=== PATIENT | female | born 1955 | race Caucasian/White ===

== ENCOUNTER → 2021-01-27 09:27 | Outpatient (CLI) | payer MEDICARE, MEDICAID, SELFPAY ==
[2021-01-27 18:29] LABS: SARS-CoV-2 RNA PCR Negative
== END ==
PROVIDERS: PCP Physician Assistant; Visit Provider Physician Assistant
DX: R68.89 Other general symptoms and signs (principal); Z20.822 Contact with and (suspected) exposure to COVID-19
CPT/HCPCS: C9803; U0003; U0005

== ENCOUNTER 2021-07-22 10:32 | Outpatient (CLI) | payer MEDICARE, MEDICAID, SELFPAY ==
[2021-07-22 11:11] LABS: Hematocrit 37.4 % (37.0-47.0); Hemoglobin 12.2 g/dL (12.0-15.0); Mean Corpuscular HGB Conc 32.6 g/dl (32-36); Mean Corpuscular Hemoglobin 27.6 pg (26-34); Mean Corpuscular Volume 84.6 fl (80-100); Mean Platelet Volume 9.6 fl (7.4-10.4); Platelet Count Result 322 k/mm3 (150-375); Red Blood Count 4.42 M/mm3 (4.2-5.4); Red Cell Distribution Width 14.9 % (11.5-14.5); White Blood Count 6.1 K/mm3 (4.5-10.0)
[2021-07-22 11:41] LABS: Alanine Aminotransferase 17 U/L (6-35); Albumin Level 4.5 g/dL (3.5-5.1); Alkaline Phosphatase 80 U/L (38-126); Anion Gap 5 mmol/L (8-16); Aspartate Amino Transferase 25 U/L (14-36); Bilirubin,Total 0.3 mg/dL (0.2-1.3); Blood Urea Nitrogen 13 mg/dL (7-17); Calcium 9.4 mg/dL (8.4-10.2); Carbon Dioxide 29 mmol/L (22-30); Chloride 104 mmol/L (98-107); Cholesterol 169 mg/dL (0-200); Estimated Glomerular Filt Rate 56; Glucose 102 mg/dL (65-110); HDL Direct 68 mg/dL; Potassium 3.9 mmol/L (3.4-5.0); Sodium 138 mmol/L (137-145); Triglycerides 100 mg/dL (<150)
[2021-07-22 11:53] LABS: LDL Cholesterol Direct 72 mg/dL
[2021-07-22 12:08] LABS: Thyroid Stimulating Hormone 0.381 uIU/mL (0.465-4.680)
[2021-07-22 12:44] LABS: Folic Acid 9.2 ng/mL (2.76->20)
[2021-07-22 12:48] LABS: Creatinine Urine 102.6 mg/dL
[2021-07-22 13:32] LABS: MALB Creatinine Ratio < 5.8 mg/g (0-30); Microalbumin Urine Random < 6.0 mg/L (0-16.7)
[2021-07-22 13:39] LABS: Hemoglobin A1C 5.8 % (<5.7)
== END 2021-07-22 10:33 | disposition home or self-care (01) ==
LOC: ANHLAB 10:36
PROVIDERS: PCP Physician Assistant; Visit Provider Physician Assistant
DX: E11.9 Type 2 diabetes mellitus without complications (principal); R53.83 Other fatigue
CPT/HCPCS: 36415; 80053; 80061; 82043; 82607; 82746; 83036; 84443; 85027

== ENCOUNTER 2021-08-24 14:45 | Outpatient (CLI) | payer MEDICARE, MEDICAID, SELFPAY ==
--- NOTE | ~2021-08-24 | MM_ITS ---
EXAMINATION: MM screening marlin BI w anabel HISTORY: Screening mammogram TECHNIQUE: Craniocaudal and mediolateral oblique 3-D tomosynthesis images were obtained and synthetic 2-D images were generated. CAD analysis was submitted and interpreted. COMPARISON: 01/01/2016, 12/29/2014 BREAST PARENCHYMAL COMPOSITION: The breasts are almost entirely fatty. FINDINGS: There is no suspicious mass, calcification, or architectural distortion to suggest malignan cy in either breast. There has been no suspicious interval change. IMPRESSION: 1. No mammographic evidence of malignancy. 2. Recommend routine screening mammography in one year. BI-RADS Category 1: Negative Reviewed, dictated and finalized at location A.
== END 2021-08-24 14:46 | disposition home or self-care (01) ==
PROVIDERS: PCP Physician Assistant; Visit Provider Physician Assistant
DX: Z12.31 Encounter for screening mammogram for malignant neoplasm of breast (principal)
CPT/HCPCS: 77063; 77067

== ENCOUNTER 2021-08-28 21:54 | Emergency (ER) | payer MEDICARE, MEDICAID, SELFPAY ==
--- NOTE | ~2021-08-28 | XR_ITS ---
XR elbow RT min 3V DATE: 08/28/2021 23:14 INDICATION: Pain and tenderness TECHNIQUE: 4 views COMPARISON: None FINDINGS: Mild dorsal olecranon process spur. Minimal spurring of the radial head. Mild spurring of t he coronoid process of the ulna. No fracture or dislocation or joint effusion. No periosteal reaction or bone destruction. IMPRESSION: Degenerative changes Reviewed, dictated and finalized at location A. IMPRESSION: Degenerative changes
[2021-08-28 21:57] VITALS: BP 140/81; PULSE 72; RESP 18; TEMP 36.5; O2SAT 98
[2021-08-28] MEDS: IBUPROFEN 600 MG TABLET PO (23:11)
[2021-08-28] MEDS: ACETAMINOPHEN 325 MG TABLET 650 MG PO (23:12)
[2021-08-28] MEDS: CYCLOBENZAPRINE HCL 5 MG TABLET PO (23:12)
--- NOTE | 2021-08-28 23:18 | ED.UPPEXIN ---
HPI - Extremity Injury (Upper) General Chief Complaint: Extremity Injury, Upper Stated Complaint: RUE pain Time Seen by Provider: 08/28/21 22:53 History of Present Illness HPI narrative: Patient is a 66-year-old female here for evaluation of right arm pain. Patient states that she was picking up her grandchild 2 hours prior to arrival, when she suddenly had some pain in her right bicep muscle. States that the pain is not there all the time, but is most notable with elbow flexion. She has not attempted any medication prior to arrival. Denies any weakness, numbness, tingling. Related Data Home Medications Medication Instructions Recorded Confirmed amlodipine 5 mg tablet 5 mg PO DAILY 08/24/20 07/16/21 aspirin 81 mg tablet,delayed 81 mg PO DAILY 08/24/20 07/16/21 release ceywyumshf-jfionphcjzdaz-evlmbbmt 1 cap PO Q4-6H PRN 08/24/20 07/16/21 50 mg-300 mg-40 mg capsule cholecalciferol (vitamin D3) 125 125 mcg PO DAILY 08/24/20 07/16/21 mcg (5,000 unit) capsule clobetasol 0.05 % topical cream 1 applic topical BID 08/24/20 07/16/21 fluticasone propionate 50 1 spray intranasal DAILY 08/24/20 07/16/21 mcg/actuation nasal spray,suspension loratadine 10 mg tablet 10 mg PO DAILY 08/24/20 07/16/21 mecobalamin (vitamin B12) 1,000 1,000 mcg PO DAILY 08/24/20 07/16/21 mcg chewable tablet melatonin 5 mg capsule mg PO 08/24/20 07/16/21 metformin 1,000 mg tablet 1,000 mg PO BID 08/24/20 07/16/21 sumatriptan succinate 50 mg tablet See Rx Instructions PO .COMPLEX 08/24/20 07/16/21 Allergies Allergy/AdvReac Type Severity Reaction Status Date / Time prednisone Allergy Unknown Swelling Verified 08/28/21 22:07 Review of Systems Review of Systems: Gen.: Denies fevers or chills Eyes: Denies eye pain or visual change ENT: Denies congestion Respiratory: Denies shortness of breath or cough CV: Denies chest pain or palpitations GI: Denies abdominal pain nausea, emesis or diarrhea denies burning, urgency, frequency or hematuria Musculoskeletal: Reports right bicep pain Neuro: Denies numbness, tingling, weakness or focal weakness Skin: Denies rash Except as documented, all other systems reviewed and negative PMFSH Past Medical History Medical History Diabetes GERD (gastroesophageal reflux disease) Heart palpitations Hypertension Sleep apnea Family History Family History Father Family history of obesity Depression Family history of migraine headaches Hypertension Family history of atrial fibrillation Family history of coronary artery disease Family history of heart disease in male family member before age 55 Mother Family history of cataracts Father Family history of atrial fibrillation Family history of congestive heart failure Mother Patient's mother is Other Family history of cardiovascular disease Family history of chronic obstructive pulmonary disease Family history of malignant neoplasm Social History Social History Smoking status: Former smoker Second hand tobacco smoke exposure: Yes Smoking end date: 02/13/11 Alcohol intake: current Substance use: unknown Exam Narrative: APPEARANCE: Well appearing, no pain in distress, well-nourished. Head: Normocephalic and atraumatic. EYES: PERRLA/EOMI, conjunctivae clear NOSE: No nasal drainage EARS: External ear normal in appearance THROAT: Oropharynx is clear. Mucous membranes are moist. NECK: Supple. No adenopathy, no masses. RESPIRATORY: Airway patent, respirations nonlabored. Clear to auscultation bilaterally, no rales, rhonchi, wheezing. CARDIOVASCULAR: Regular rate and rhythm without murmurs, rubs, or gallops. ABDOMINAL: Normoactive bowel sounds. Soft, nontender, nondistended. No rebound tenderness or guarding. MUSCULOSKELETAL: No bony t
[2021-08-29 00:35] VITALS: BP 149/80; PULSE 63; RESP 16; O2SAT 98
== END 2021-08-29 00:35 | disposition home or self-care (01) ==
PROVIDERS: Emergency Provider Emergency Medicine; PCP Physician Assistant
DX: S46.211A Strain of muscle, fascia and tendon of other parts of biceps, right arm, initial encounter (principal); I10 Essential (primary) hypertension; E11.9 Type 2 diabetes mellitus without complications; K21.9 Gastro-esophageal reflux disease without esophagitis; G47.30 Sleep apnea, unspecified; Z79.84 Long term (current) use of oral hypoglycemic drugs; Z79.82 Long term (current) use of aspirin; Z87.891 Personal history of nicotine dependence; X50.0XXA Overexertion from strenuous movement or load, initial encounter
CPT/HCPCS: 73080; 99283; A9270

== ENCOUNTER 2021-09-01 09:59 | Outpatient (CLI) | payer MEDICARE, MEDICAID, SELFPAY ==
--- NOTE | 2021-09-01 11:30 | NEURO_ITS ---
Impression: # Complains of pain in right upper extremity proximally. # No Carpal Tunnel Syndrome or ulnar neuropathy. # Normal needle/EMG exam. # Clinical correlation recommended. Nerve Conduction Studies Anti Sensory Summary Table Stim Site NR Peak (ms) P-T Amp (?V) Site1 Site2 Delta-P (ms) Dist (cm) Thomas (m/s) Right Median Anti Sensory (2-3nd Digit) Wrist 2.7 32.0 Wrist 2-3nd Digit 2.7 14.0 52 Wrist 2.6 44.6 Wrist 2-3nd Digit 2.7 14.0 52 Right Radial Anti Sensory (Base 1st Digit) Wrist 1.8 17.5 Wrist Base 1st Digit 1.8 0.0 Right Ulnar Anti Sensory (5th Digit) Wrist 2.3 43.3 Wrist 5th Digit 2.3 14.0 61 Motor Summary Table Stim Site NR Onset (ms) O-P Amp (mV) Site1 Site2 Delta-0 (ms) Dist (cm) Thomas (m/s) Right Median Motor (Abd Poll Brev) Wrist 3.4 3.4 Elbow Wrist 5.7 28.0 49 Elbow 9.1 0.6 Right Ulnar Motor (Abd Dig Minimi) Wrist 2.4 7.8 A Elbow Wrist 4.6 27.0 59 A Elbow 7.0 6.2 F Wave Studies NR F-Lat (ms) L-R F-Lat (ms) Right Median (Mrkrs) (Abd Poll Brev) 28.30 Right Ulnar (Mrkrs) (Abd Dig Min) 27.73 EMG Side Muscle Nerve Root Ins Act Fibs Amp Dur Recrt Comment Right 1stDorInt Ulnar C8-T1 Nml Nml Nml Nml Nml Right Ext Indicis Radial (Post Int) C7-8 Nml Nml Nml Nml Nml Right Ext Digitorum Radial (Post Int) C7-8 Nml Nml Nml Nml Nml Right BrachioRad Radial C5-6 Nml Nml Nml Nml Nml Right PronatorTeres Median C6-7 Nml Nml Nml Nml Nml Right Abd Poll Brev Median C8-T1 Nml Nml Nml Nml Nml Right Biceps Musculocut C5-6 Nml Nml Nml Nml Nml Right Triceps Radial C6-7-8 Nml Nml Nml Nml Nml Right Deltoid Axillary C5-6 Nml Nml Nml Nml Nml MTDD
== END 2021-09-01 10:00 | disposition home or self-care (01) ==
LOC: ANHNEURO 10:00
PROVIDERS: PCP Physician Assistant; Visit Provider Physician Assistant
DX: M79.601 Pain in right arm (principal)
CPT/HCPCS: 95886; 95909

== ENCOUNTER 2022-03-22 01:37 | Day surgery (SDC) | payer MEDICARE, MEDICAID, SELFPAY ==
[2022-02-18 11:13] VITALS: BMI 35.9
[2022-03-22 09:30] VITALS: BP 130/74; PULSE 66; RESP 18; TEMP 36.1; O2SAT 100
--- NOTE | 2022-03-22 09:48 | PM.HPGS ---
History of Present Illness History of Present Illness Consent: Risks, benefits, and alternatives have been discussed and questions answered. Patient agrees to proceed with procedure. Chief complaint: Dysphagia Narrative: Sarah Fallon is a 66 year old female Presents for EGD. Patient reports when eating meat that it will catch in her throat. She states this been present for many months. Patient has very poor dentition is difficult to chew meat thoroughly. She also has a history of acid reflux is been present for many years. She previously had heartburn. Currently maintained on omeprazole 20mg p.o. b.i.d.. She has not had heartburn while taking this medication. It will recur if she only takes it once a day. Patient states many years ago had an EGD that was unremarkable. Because of difficulty swallowing she is referred today for EGD to assess for esophageal narrowing. Review of Systems Review of Systems: Review of systems noncontributory. [facility] Past Medical History Medical History Diabetes GERD (gastroesophageal reflux disease) Heart palpitations Hypertension Sleep apnea Family History Family History Father Family history of obesity Depression Family history of migraine headaches Hypertension Family history of atrial fibrillation Family history of coronary artery disease Family history of heart disease in male family member before age 55 Mother Family history of cataracts Father Family history of atrial fibrillation Family history of congestive heart failure Mother Patient's mother is Other Family history of cardiovascular disease Family history of chronic obstructive pulmonary disease Family history of malignant neoplasm Social History Social History Smoking status: Former smoker Tobacco type: cigarettes Second hand tobacco smoke exposure: Yes Smoking end date: 02/13/11 Alcohol intake: current Alcohol use details: rarely Substance use: unknown Substance use type: does not use Lack of Transportation: No Lack of Food: Never True Current Housing: I Have Housing Concerned About Future Housing: No Difficulty Paying Gas/Electric Bills: No Difficulty Paying for Meds: No Currently Unemployed: No Education: High School Diploma/GED Difficulty w/ Childcare or Family Care: No Living arrangements: with family Spiritual care concerns: No Meds Home Medications and Allergies Home Medications Medication Instructions Recorded Confirmed Type amlodipine 5 mg tablet 5 mg PO DAILY 08/24/20 03/10/22 History aspirin 81 mg tablet,delayed 81 mg PO DAILY 08/24/20 03/10/22 History release puegytmnux-aykbnnhspmicy-bcqzzxpt 1 cap PO Q4-6H PRN Migraine 08/24/20 03/10/22 History 50 mg-300 mg-40 mg capsule Headache cholecalciferol (vitamin D3) 125 125 mcg PO DAILY 08/24/20 03/10/22 History mcg (5,000 unit) capsule fluticasone propionate 50 1 spray intranasal DAILY PRN 08/24/20 03/10/22 History mcg/actuation nasal Allergy Symptoms spray,suspension loratadine 10 mg tablet 10 mg PO DAILY PRN allergy symptoms 08/24/20 03/10/22 History mecobalamin (vitamin B12) 1,000 1,000 mcg PO EVERY OTHER DAY 08/24/20 03/10/22 History mcg chewable tablet metformin 1,000 mg tablet 1,000 mg PO BID 08/24/20 03/10/22 History sumatriptan succinate 50 mg tablet See Rx Instructions PO .COMPLEX 08/24/20 03/10/22 History lancets (Accu-Chek Fastclix Lancet #100 ea 01/18/21 03/10/22 Rx Drum) omeprazole 20 mg capsule,delayed 20 mg PO BID #180 caps 09/30/21 03/10/22 Rx release topiramate 50 mg tablet 50 mg PO BID #180 tabs 10/24/21 03/10/22 Rx betamethasone valerate 0.1 % 1 applic topical BID PRN rash #45 11/08/21 03/10/22 Rx topical cream grams blood sugar diagnostic (Accu-Chek #100 e
[2022-03-22] MEDS: LACTATED RINGERS 1,000 ML 150 ML IV CONT (09:49)
[2022-03-22 09:50] LABS: Glucose Point of Care 96 mg/dl (65-105)
--- NOTE | 2022-03-22 09:55 | WPDANESEPPF ---
Anes - Initial Pre Proc Eval Procedure: Operation Date: 03/22/22 11:00 Proposed Procedures p Esophagogastroduodenoscopy - Geo Mcdowell MD Date/Time: 03/22/22 09:55 Surgeon: Geo Mcdowell MD Pre Op Diagnosis: Dysphagia Patient Data Age: 66 Gender: F Height: 1.55 m Weight: 85.5 kg Last Vital Signs Temp 97 F L 03/22/22 09:30 Pulse 66 03/22/22 09:30 Resp 18 03/22/22 09:30 BP 130/74 03/22/22 09:30 Pulse Ox 100 03/22/22 09:30 O2 Del Method Room Air 03/22/22 09:30 Allergies Allergy/AdvReac Type Severity Reaction Status Date / Time prednisone Allergy Unknown Swelling Verified 03/22/22 09:28 Home Medications Medication Instructions Recorded Confirmed Type amlodipine 5 mg tablet 5 mg PO DAILY 08/24/20 03/10/22 History aspirin 81 mg tablet,delayed 81 mg PO DAILY 08/24/20 03/10/22 History release awvmjqrnni-svyfigcnqzikl-qrlatccz 1 cap PO Q4-6H PRN Migraine 08/24/20 03/10/22 History 50 mg-300 mg-40 mg capsule Headache cholecalciferol (vitamin D3) 125 125 mcg PO DAILY 08/24/20 03/10/22 History mcg (5,000 unit) capsule fluticasone propionate 50 1 spray intranasal DAILY PRN 08/24/20 03/10/22 History mcg/actuation nasal Allergy Symptoms spray,suspension loratadine 10 mg tablet 10 mg PO DAILY PRN allergy symptoms 08/24/20 03/10/22 History mecobalamin (vitamin B12) 1,000 1,000 mcg PO EVERY OTHER DAY 08/24/20 03/10/22 History mcg chewable tablet metformin 1,000 mg tablet 1,000 mg PO BID 08/24/20 03/10/22 History sumatriptan succinate 50 mg tablet See Rx Instructions PO .COMPLEX 08/24/20 03/10/22 History lancets (Accu-Chek Fastclix Lancet #100 ea 01/18/21 03/10/22 Rx Drum) omeprazole 20 mg capsule,delayed 20 mg PO BID #180 caps 09/30/21 03/10/22 Rx release topiramate 50 mg tablet 50 mg PO BID #180 tabs 10/24/21 03/10/22 Rx betamethasone valerate 0.1 % 1 applic topical BID PRN rash #45 11/08/21 03/10/22 Rx topical cream grams blood sugar diagnostic (Accu-Chek #100 ea 11/22/21 03/10/22 Rx Guide test strips) lisinopril 40 mg tablet 40 mg PO DAILY #90 tabs 11/28/21 03/10/22 Rx meloxicam 7.5 mg tablet 7.5 mg PO BID #60 tabs 12/17/21 03/10/22 Rx simvastatin 20 mg tablet 20 mg PO DAILY #90 tabs 01/03/22 03/10/22 Rx oxybutynin chloride 10 mg 10 mg PO DAILY #90 tabs 01/10/22 03/10/22 Rx tablet,extended release 24 hr fluoxetine 20 mg capsule 20 mg PO DAILY #90 caps 02/09/22 03/10/22 Rx hydrochlorothiazide 12.5 mg tablet 12.5 mg PO DAILY #90 tabs 02/09/22 03/10/22 Rx carboxymethylcellulose 0.5 1 drp EACH EYE DAILY 02/18/22 03/10/22 History %-glycerin 0.9 % eye drops (Refresh Relieva) Laboratory Tests 03/22/22 09:46 POC Capillary Glucose 96 mg/dl mg/dl (65-105) Patient hx anesthesia problems: none Family hx anesthesia problems: none Results Review: All pre-operative results and documents have been reviewed as part of the pre-operative evaluation. [facility] Past Medical History Medical History Diabetes GERD (gastroesophageal reflux disease) Heart palpitations Hypertension Sleep apnea Family History Family History Father Family history of obesity Depression Family history of migraine headaches Hypertension Family history of atrial fibrillation Family history of coronary artery disease Family history of heart disease in male family member before age 55 Mother Family history of cataracts Father Family history of atrial fibrillation Family history of congestive heart failure Mother Patient's mother is Other Family history of cardiovascular disease Family history of chronic obstructive pulmonary disease Family history of malignant neoplasm Social History Social History Smoking status: Former smoker Tobacco type: cigarettes Secon
[2022-03-22 10:24] VITALS: BP 94/62; PULSE 75; RESP 16; O2SAT 100
[2022-03-22 10:34] VITALS: BP 120/70; PULSE 70; RESP 15; O2SAT 98
[2022-03-22 10:44] VITALS: BP 128/81; PULSE 67; RESP 16; O2SAT 99
== END 2022-03-22 10:56 | disposition home or self-care (01) ==
PROVIDERS: PCP Physician Assistant; Visit Provider Internal Medicine Gastroenterology
PROC: 0DJ08ZZ Inspection of Upper Intestinal Tract, Via Natural or Artificial Opening Endoscopic (ICD-10-PCS; CPT 43235; principal; 2022-03-22 11:00)
DX: R13.10 Dysphagia, unspecified (principal); K21.9 Gastro-esophageal reflux disease without esophagitis; E11.9 Type 2 diabetes mellitus without complications; I10 Essential (primary) hypertension; G47.30 Sleep apnea, unspecified; Z79.82 Long term (current) use of aspirin; Z79.84 Long term (current) use of oral hypoglycemic drugs; Z87.891 Personal history of nicotine dependence; E66.9 Obesity, unspecified; Z68.35 Body mass index [BMI] 35.0-35.9, adult
CPT/HCPCS: 43450; 43235; 36415; 80053; 82948; 83036; 84439; 84443; J2704; J7120

== ENCOUNTER 2022-03-22 08:23 | Outpatient (CLI) | payer MEDICARE, MEDICAID, SELFPAY ==
[2022-03-22 09:09] LABS: Alanine Aminotransferase 24 U/L (6-35); Albumin Level 4.4 g/dL (3.5-5.1); Alkaline Phosphatase 72 U/L (38-126); Anion Gap 5 mmol/L (8-16); Aspartate Amino Transferase 24 U/L (14-36); Bilirubin,Total 0.4 mg/dL (0.2-1.3); Blood Urea Nitrogen 14 mg/dL (7-17); Calcium 9.4 mg/dL (8.4-10.2); Carbon Dioxide 29 mmol/L (22-30); Chloride 100 mmol/L (98-107); Estimated Glomerular Filt Rate 56; Glucose 100 mg/dL (65-110); Potassium 4.1 mmol/L (3.4-5.0); Sodium 134 mmol/L (137-145)
[2022-03-22 09:39] LABS: Thyroid Stimulating Hormone 0.974 uIU/mL (0.465-4.680)
[2022-03-22 09:45] LABS: Free T4 Free Thyroxine 0.81 ng/mL (0.78-2.19)
[2022-03-22 10:09] LABS: Hemoglobin A1C 5.6 % (<5.7)
== END 2022-03-22 08:24 | disposition home or self-care (01) ==
PROVIDERS: PCP Physician Assistant; Visit Provider Physician Assistant
DX: E11.9 Type 2 diabetes mellitus without complications (principal); E05.90 Thyrotoxicosis, unspecified without thyrotoxic crisis or storm
CPT/HCPCS: 36415; 80053; 83036; 84439; 84443

== ENCOUNTER 2022-05-16 10:37 | Outpatient (CLI) | payer MEDICARE, MEDICAID, SELFPAY ==
--- NOTE | ~2022-05-16 | XR_ITS ---
EXAMINATION: XR humerus RT DATE: 05/16/2022 10:58 INDICATION: Right humeral pain TECHNIQUE: AP and lateral views of the right humerus were obtained. COMPARISON: Right elbow radiographs dated 08/28/2021 FINDINGS: Alignment is normal. No fracture. Mild osteoarthritis at the right elbow, glenohumeral and acromiocla vicular joints. Small olecranon spur. No cortical erosions, periosteal reaction or suspicious lytic o r blastic bone lesions. Soft tissues are unremarkable. IMPRESSION: 1. 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 No acute osseous abnormality. Reviewed, dictated and finalized at location A. IMPRESSION: 1. 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 No acute osseous abnorm ality.
== END 2022-05-16 10:38 | disposition home or self-care (01) ==
PROVIDERS: PCP Physician Assistant; Visit Provider Physician Assistant
DX: M19.021 Primary osteoarthritis, right elbow (principal); M19.011 Primary osteoarthritis, right shoulder
CPT/HCPCS: 73060

== ENCOUNTER 2022-05-30 13:52 | Outpatient (CLI) | payer MEDICARE, MEDICAID, SELFPAY ==
--- NOTE | ~2022-05-30 | CT_ITS ---
Noncontrast CT scan of the lumbar spine CLINICAL HISTORY: Central canal stenosis. TECHNIQUE: Axial noncontrast imaging of the lumbar spine was performed. Sagittal and coronal reformat jessi images were constructed. Dose reduction technique was used on this scan by utilizing automated ex posure control and iterative reconstruction technique. The dose-length product (DLP) was 667.98 mGy-c m. COMPARISON: 09/19/2016 FINDINGS: No fracture or subluxation of the lumbar spine identified. There is severe degenerative dis c narrowing at L1-L2, progressed since prior exam. Remaining disc spaces are relatively well-preserve d. At L1-L2, there is minimal disc bulge with facet arthropathy. No gagandeep spinal canal stenosis. No defi nite neural foraminal narrowing. At L2-L3, there is diffuse disc bulge and facet arthropathy. There is probable mild central canal gracy nosis. There is probable mild bilateral neural foraminal narrowing, left worse than right. At L3-L4, disc bulge and facet arthropathy are present, resulting in probable moderate to severe cent ral canal stenosis. There is probable moderate bilateral neural foraminal narrowing. At L4-L5, there is disc bulge and facet arthropathy, resulting in probable moderate to severe thecal sac compression/spinal canal stenosis. There is moderate to advanced bilateral neural foraminal narro wing. At L5-S1, there is probable disc bulge and facet arthropathy. No definite canal stenosis. There is se thomas bilateral neural foraminal narrowing. Intrathecal catheters are present, entering the spinal canal at the T12-L1 level. Paravertebral soft tissues are otherwise unremarkable. IMPRESSION: Advanced degenerative spondylosis, as detailed above. There is multifactorial degenerative moderate t o severe thecal sac compression/spinal canal stenosis at L3-L4 and L4-L5. There is probable mild cent ral canal stenosis at L2-L3. There is multilevel neural foraminal narrowing, as detailed above. Severe degenerative disc narrowing at L1-L2. Intrathecal catheters, as above. Reviewed, dictated and finalized at location M. IMPRESSION: Advanced degenerative spondylosis, as detailed above. There is multifactorial d egenerative moderate to severe thecal sac compression/spinal canal stenosis at L3-L4 and L4-L5. There is probable mild central canal stenosis at L2-L3. There is multilevel neural foraminal narrowing, as detailed above. Severe degenerative disc narrowing at L1-L2. Intrathecal catheters, as above.
== END 2022-05-30 13:53 | disposition home or self-care (01) ==
PROVIDERS: PCP Physician Assistant; Visit Provider Physician Assistant
DX: M48.00 Spinal stenosis, site unspecified (principal); M43.06 Spondylolysis, lumbar region
CPT/HCPCS: 72131

== ENCOUNTER 2022-07-22 20:44 | Emergency (ER) | payer MEDICARE, MEDICAID, SELFPAY ==
--- NOTE | ~2022-07-22 | CT_ITS ---
EXAMINATION: CT abdomen pelvis w con DATE: 07/23/2022 00:10 INDICATION: Constipation. Left lower quadrant pain. TECHNIQUE: Computed tomography (CT) of the abdomen and pelvis was performed with 100 cc Omnipaque 350 intravenous contrast. The dose-length product was 857.85 mGy-cm. Automated exposure control and iter ative reconstruction technique were employed. COMPARISON: None. FINDINGS: Lung bases are unremarkable. No significant pleural or pericardial effusion. Heart size nor mal. Moderate diffuse atherosclerosis of the aorta without aneurysm. No lymphadenopathy. The liver, spleen, pancreas, adrenal glands and kidneys are unremarkable. No lymphadenopathy. No free air or free fluid. Nonobstructive bowel pattern. The appendix is not positively visualized. There i s no pericecal inflammatory change to suggest appendicitis. Nonobstructive bowel pattern. No evidence for diverticulitis. Moderate colonic fecal loading. IMPRESSION: 1. No acute abdominal abnormality. Reviewed, dictated and finalized at location A.
[2022-07-22 21:19] VITALS: BP 131/73; PULSE 73; RESP 18; TEMP 36.3; O2SAT 100
[2022-07-22 22:26] LABS: Basophils Percent Auto 0.5 % (0.2-1.2); Eosinophils Absolute Auto 0.4 K/mm3 (0-0.3); Eosinophils Percent Auto 4.9 % (0-4.4); Hematocrit 38.7 % (37.0-47.0); Hemoglobin 12.4 g/dL (12.0-15.0); Immature Granulocyte Absolute 0.05 K/mm3 (0.00-0.031); Immature Granulocyte Percent A 0.6 % (0-0.5); Lymphocytes Absolute Auto 3.06 K/mm3 (0.9-3.2); Lymphocytes Percent Auto 39.6 % (18.3-44.2); Mean Corpuscular Hemoglobin 27.1 pg (26-34); Mean Corpuscular Volume 84.7 fl (80-100); Mean Platelet Volume 9.6 fl (7.4-10.4); Monocytes Percent Auto 12.5 % (2.6-8.5); Neutrophils Absolute Auto 3.2 K/mm3 (1.3-6.7); Neutrophils Percent Auto 41.9 % (45.5-73.1); Platelet Count Result 308 k/mm3 (150-375); Red Blood Count 4.57 M/mm3 (4.2-5.4); Red Cell Distribution Width 14.5 % (11.5-14.5); White Blood Count 7.7 K/mm3 (4.5-10.0)
[2022-07-22 22:36] LABS: Alanine Aminotransferase 26 U/L (6-35); Albumin Level 4.6 g/dL (3.5-5.1); Alkaline Phosphatase 65 U/L (38-126); Anion Gap 4 mmol/L (8-16); Aspartate Amino Transferase 30 U/L (14-36); Bilirubin,Total 0.3 mg/dL (0.2-1.3); Blood Urea Nitrogen 9 mg/dL (7-17); Calcium 9.4 mg/dL (8.4-10.2); Carbon Dioxide 32 mmol/L (22-30); Chloride 96 mmol/L (98-107); Estimated CRCL calculation 48 ml/min; Estimated Glomerular Filt Rate 56; Glucose 101 mg/dL (65-110); Lipase 76 U/L (23-300); Potassium 3.8 mmol/L (3.4-5.0); Sodium 132 mmol/L (137-145)
[2022-07-22 23:18] LABS: Appearance Urine Clear (Clear); Bilirubin Urine Negative (Negative); Blood Urine Negative (Negative); Color Urine Yellow (Yellow); Glucose Urine UA Negative (Negative); Ketones Urine Negative (Negative); Leukocyte Esterase Ur Negative LEU/UL (Negative); Nitrate Urine Negative (Negative); Protein Urine Negative (Negative); Specific Grav Ur 1.003 (1.001-1.035); Urobilinogen Urine 0.2 mg/dL (<2.0); pH Urine 7.5 (5.0-9.0)
[2022-07-22 23:22] VITALS: BP 119/65; PULSE 63; RESP 15; TEMP 36.9; O2SAT 100
[2022-07-22 23:40] LABS: Add Urine Microscopic? NO
--- NOTE | 2022-07-22 23:56 | ED.ABDPAIN ---
HPI - Abdominal Pain General Chief Complaint: Abdominal Pain Stated Complaint: constipation Time Seen by Provider: 07/22/22 22:43 Source: patient Mode of arrival: ambulatory Limitations: no limitations History of Present Illness HPI narrative: Patient is a 66 y/o female who presents to the ED with c/o constipation. Patient reports she was diagnosed with colitis last at [facility], started on Augmentin. She has been taking this as prescribed. She c/o intermittent lower abdominal cramping and persistent constipation since then. She states her last bowel movement was on prior to the colitis diagnosis. She has been taking MiraLAX and Dulcolax without relief. She denies any nausea, vomiting, fevers, urinary symptoms. Related Data Home Medications Medication Instructions Recorded Confirmed amlodipine 5 mg tablet 5 mg PO DAILY 08/24/20 07/21/22 aspirin 81 mg tablet,delayed 81 mg PO DAILY 08/24/20 07/21/22 release ybqhjxorpf-xwxxxasdzdirv-vfwcrrih 1 cap PO Q4-6H PRN Migraine 08/24/20 07/21/22 50 mg-300 mg-40 mg capsule Headache cholecalciferol (vitamin D3) 125 125 mcg PO DAILY 08/24/20 07/21/22 mcg (5,000 unit) capsule fluticasone propionate 50 1 spray intranasal DAILY PRN 08/24/20 07/21/22 mcg/actuation nasal Allergy Symptoms spray,suspension loratadine 10 mg tablet 10 mg PO DAILY PRN allergy symptoms 08/24/20 07/21/22 mecobalamin (vitamin B12) 1,000 1,000 mcg PO EVERY OTHER DAY 08/24/20 07/21/22 mcg chewable tablet sumatriptan succinate 50 mg tablet See Rx Instructions PO .COMPLEX 08/24/20 07/21/22 carboxymethylcellulose 0.5 1 drp EACH EYE DAILY 02/18/22 07/21/22 %-glycerin 0.9 % eye drops (Refresh Relieva) amoxicillin 875 mg-potassium 1 tablet PO BID 07/20/22 07/21/22 clavulanate 125 mg tablet Allergies Allergy/AdvReac Type Severity Reaction Status Date / Time prednisone Allergy Unknown Swelling Verified 07/22/22 21:28 Review of Systems Review of Systems: CONSTITUTIONAL: Denies fever, chills, or sweats. CARDIOVASCULAR: Denies chest pain. RESPIRATORY: Denies dyspnea. GASTROINTESTINAL: See HPI. GENITOURINARY: Denies dysuria or hematuria. SKIN: Denies rash or itching. MUSCULOSKELETAL: Denies back pain, joint pain, or myalgia. All systems reviewed & are unremarkable except as noted in HPI and below PMFSH Past Medical History Medical History Diabetes GERD (gastroesophageal reflux disease) Heart palpitations Hypertension Sleep apnea Family History Family History Father Family history of obesity Depression Family history of migraine headaches Hypertension Family history of atrial fibrillation Family history of coronary artery disease Family history of heart disease in male family member before age 55 Mother Family history of cataracts Father Family history of atrial fibrillation Family history of congestive heart failure Mother Patient's mother is Other Family history of cardiovascular disease Family history of chronic obstructive pulmonary disease Family history of malignant neoplasm Social History Social History Smoking status: Former smoker Tobacco type: cigarettes Second hand tobacco smoke exposure: Yes Smoking end date: 02/13/11 Alcohol intake: current Alcohol use details: rarely Substance use: unknown Substance use type: does not use Lack of Transportation: No Lack of Food: Never True Current Housing: I Have Housing Concerned About Future Housing: No Difficulty Paying Gas/Electric Bills: No Difficulty Paying for Meds: No Currently Unemployed: No Education: High School Diploma/GED Difficulty w/ Childcare or Family Care: No Living arrangements: with family Spiritual care concerns: No Exam Narrative:
[2022-07-23] MEDS: SODIUM CHLORIDE 0.9% IV 1,000 ML 999 ML IV CONT (00:21)
[2022-07-23 01:26] VITALS: BP 112/68; PULSE 78; RESP 15; O2SAT 100
[2022-07-23 02:37] VITALS: BP 105/60; PULSE 64; RESP 16; TEMP 36.9; O2SAT 99
== END 2022-07-23 02:38 | disposition home or self-care (01) ==
PROVIDERS: Emergency Medicine; Emergency Provider Physician Assistant; PCP Physician Assistant
DX: K59.00 Constipation, unspecified (principal); E11.9 Type 2 diabetes mellitus without complications; I10 Essential (primary) hypertension; K21.9 Gastro-esophageal reflux disease without esophagitis; G47.30 Sleep apnea, unspecified; Z87.891 Personal history of nicotine dependence; Z79.82 Long term (current) use of aspirin; Z79.84 Long term (current) use of oral hypoglycemic drugs
CPT/HCPCS: 36415; 74177; 80053; 81003; 83690; 85025; 96360; 99284; J7030; Q9967

== ENCOUNTER 2022-09-29 11:46 | Outpatient (CLI) | payer MEDICARE, MEDICAID, SELFPAY ==
--- NOTE | ~2022-09-29 | XR_ITS ---
EXAMINATION: XR chest 2V DATE: 09/29/2022 13:02 INDICATION: Hypertension. Preop. TECHNIQUE: Frontal and lateral views of the chest were obtained. COMPARISON: CT abdomen and pelvis 07/23/2022 FINDINGS: There is no pneumonia, pleural effusion, or pneumothorax. The heart size is normal. Epidura l electrodes are noted. IMPRESSION: 1. No acute cardiopulmonary disease. Reviewed, dictated and finalized at location A.
--- NOTE | 2022-09-29 12:18 | ECG_ITS ---
Measurements Intervals [place] Rate: 65 P: 75 VA: 165 QRS: 40 QRSD: 93 T: 32 QT: 393 QTc: 411 Interpretive Statements SINUS RHYTHM WITH SINUS ARRHYTHMIA NONSPECIFIC T-WAVE ABNORMALITY BORDERLINE ECG NO PREVIOUS ECG AVAILABLE FOR COMPARISON Electronically Signed On 09-29-2022 13:34:12 CDT by Ankush Gagnon M.D.
[2022-09-29 12:51] LABS: Basophils Percent Auto 0.5 % (0.2-1.2); Eosinophils Absolute Auto 0.3 K/mm3 (0-0.3); Eosinophils Percent Auto 3.5 % (0-4.4); Hemoglobin 12.3 g/dL (12.0-15.0); Immature Granulocyte Absolute 0.03 K/mm3 (0.00-0.031); Immature Granulocyte Percent A 0.4 % (0-0.5); Lymphocytes Absolute Auto 2.02 K/mm3 (0.9-3.2); Lymphocytes Percent Auto 24.7 % (18.3-44.2); Mean Corpuscular HGB Conc 31.5 g/dl (32-36); Mean Corpuscular Volume 85.7 fl (80-100); Mean Platelet Volume 9.5 fl (7.4-10.4); Monocytes Absolute Auto 1.1 K/mm3 (0.1-0.6); Monocytes Percent Auto 13.2 % (2.6-8.5); Neutrophils Absolute Auto 4.7 K/mm3 (1.3-6.7); Neutrophils Percent Auto 57.7 % (45.5-73.1); Platelet Count Result 342 k/mm3 (150-375); Red Blood Count 4.55 M/mm3 (4.2-5.4); Red Cell Distribution Width 14.2 % (11.5-14.5); White Blood Count 8.2 K/mm3 (4.5-10.0)
[2022-09-29 12:53] LABS: Appearance Urine Clear (Clear); Bilirubin Urine Negative (Negative); Blood Urine Negative (Negative); Color Urine Yellow (Yellow); Glucose Urine UA Negative (Negative); Ketones Urine Negative (Negative); Leukocyte Esterase Ur Negative LEU/UL (Negative); Nitrate Urine Negative (Negative); Protein Urine Negative (Negative); Specific Grav Ur 1.017 (1.001-1.035); pH Urine 5.5 (5.0-9.0)
[2022-09-29 12:58] LABS: Add Urine Microscopic? NO
[2022-09-29 13:01] LABS: Anion Gap 10 mmol/L (8-16); Blood Urea Nitrogen 12 mg/dL (7-17); Calcium 9.5 mg/dL (8.4-10.2); Carbon Dioxide 25 mmol/L (22-30); Chloride 99 mmol/L (98-107); Estimated Glomerular Filt Rate > 60; Glucose 89 mg/dL (65-110); Potassium 3.9 mmol/L (3.4-5.0); Sodium 134 mmol/L (137-145)
[2022-09-29 13:19] LABS: Prothrombin Time 13.9 Seconds (11.1-14.7)
[2022-09-29 13:20] LABS: Partial Thromboplastin Time 26.8 SECONDS (22.3-36.8)
[2022-09-29 20:06] LABS: Hemoglobin A1C 5.6 % (<5.7)
== END 2022-09-29 11:47 | disposition home or self-care (01) ==
LOC: ANHSURGERY 12:14
PROVIDERS: PCP Physician Assistant; Visit Provider Neurological Surgery
DX: E11.9 Type 2 diabetes mellitus without complications (principal); I10 Essential (primary) hypertension; T85.192A Other mechanical complication of implanted electronic neurostimulator of spinal cord electrode (lead), initial encounter; Z01.818 Encounter for other preprocedural examination
CPT/HCPCS: 36415; 71046; 80048; 81003; 83036; 85025; 85610; 85730; 93005

== ENCOUNTER 2022-10-05 01:30 | Day surgery (SDC) | payer MEDICARE, MEDICAID, SELFPAY ==
--- NOTE | 2022-09-26 12:30 | PC.NURSE ---
Report to the Outpatient Waiting Room, entrance under the green pavilion located off [facility], at time _0600 on date _09/15/22/ . Planned Procedure Time: __0730 . Time changes happen often and if your time is changed the preop area will call you the afternoon before. - You and your visitor will be asked to self-screen and do not enter if you have any COVID symptoms. - A mask is optional within the hospital at this time. Patients may have clear liquids (water, carbonated beverages, clear teas, apple juice) until 3 hours prior to surgery with a maximum of 20 ounces. - No food from midnight until time of surgery - Infants may have breast milk until 4 hours before surgery, infant formula 6 hours prior to surgery. - Children will be allowed to drink immediately following surgery. If applicable, please bring a bottle or sippy cup to assist with drinking. Juice, water, soda, and popsicles are readily available. For infants on formula, please bring formula the day of surgery. Pacifiers are allowed. Take the following medications with a SIP of water the morning of surgery: ___AMLODIPINE,FLUOXETINE, DO NOT STOP ANY OF YOUR OTHER PRESCRIPTION MEDICATIONS PRIOR TO SURGERY ?EXCEPT THE FOLLOWING Medications to discontinue per physician ___ALL VITAMINS AND SUPPLEMENTS 3 DAYS PRE OP.LAST DOSE 10/02/22. ASPIRIN PER DR MANTILLA Please no make-up, nail french, hairspray, perfume, deodorant, or body powder the day of surgery. No jewelry (including any body piercings) or valuables the day of surgery, leave them at home. Please take a shower or bath the night before, or the morning of, surgery with an antibacterial soap. Wear comfortable, loose fitting clothing. Children are encouraged to wear pajamas. - Jewelry must be removed prior to entering the operating room. Rings and piercings that are not removed may be cut off. - The hospital will not accept responsibility for valuables. - Please leave all valuables, including medications, at home the day of surgery. If you are going home after surgery, a licensed fast food delivery driver must drive you home. - NO public transportation without another adult if you receive anesthesia. - We recommend that an adult stay with you for 24 hours following discharge. - We also recommend that you do not drive, make important decision, drink alcoholic beverages, or take any drugs that were not prescribed by your health care provider for at least 24 hours after your discharge time. Follow any additional instructions given to you from your surgeon. If you or anyone in your household have experienced Covid symptoms in the past week, please notify your surgeon or the nurse liaison at the phone number below for possible testing. Telephone instructions given to ___PATIENT and asked if any additional questions and then verbalized understanding. Patient advised to call surgeon office or pre surgery nurse liaison [phone] if any additional questions.
[2022-09-26 12:42] VITALS: BMI 34.4
[2022-10-05] VITALS (8 sets, daily range): BP systolic 85–125; BP diastolic 52–70; PULSE 59–76; RESP 12–18; TEMP 36.1–36.7; O2SAT 97–100
[2022-10-05] MEDS: LACTATED RINGERS 1,000 ML 30 ML IV CONT ×2 (06:30→08:30)
[2022-10-05 07:03] LABS: Glucose Point of Care 98 mg/dl (65-105)
--- NOTE | 2022-10-05 07:15 | WPDHPUPDATE1 ---
History and Physical Update Update Date/Time: 10/05/22 07:15 History and Physical has been reviewed, including an updated exam of the patient. There are NO changes in the patient's condition. Risks, benefits, and alternatives have been discussed and questions answered. Patient agrees to proceed with procedure.
--- NOTE | 2022-10-05 07:24 | WPDANESEPPF ---
Anes - Initial Pre Proc Eval Procedure: Operation Date: 10/05/22 07:30 Proposed Procedures p Removal Spinal Cord Stimulator and Generator - Jalyn Bauer MD Date/Time: 10/05/22 07:24 Surgeon: Jalyn Bauer MD Pre Op Diagnosis: spinalcord stimulator dysfunction Patient Data Age: 67 Gender: F Height: 1.56 m Weight: 83.95 kg Allergies Allergy/AdvReac Type Severity Reaction Status Date / Time prednisone Allergy Unknown Swelling Verified 09/26/22 12:10 Home Medications Medication Instructions Recorded Confirmed Type amlodipine 5 mg tablet 5 mg PO DAILY 08/24/20 09/26/22 History aspirin 81 mg tablet,delayed 81 mg PO DAILY 08/24/20 09/26/22 History release ahjykynzpo-jshohzudncicp-erlcrnje 1 cap PO Q4-6H PRN Migraine 08/24/20 09/26/22 History 50 mg-300 mg-40 mg capsule Headache cholecalciferol (vitamin D3) 125 125 mcg PO DAILY 08/24/20 09/26/22 History mcg (5,000 unit) capsule fluticasone propionate 50 1 spray intranasal DAILY PRN 08/24/20 09/26/22 History mcg/actuation nasal Allergy Symptoms spray,suspension loratadine 10 mg tablet 10 mg PO DAILY PRN allergy symptoms 08/24/20 09/26/22 History mecobalamin (vitamin B12) 1,000 1,000 mcg PO EVERY OTHER DAY 08/24/20 09/26/22 History mcg chewable tablet sumatriptan succinate 50 mg tablet See Rx Instructions PO .COMPLEX 08/24/20 09/26/22 History lancets (Accu-Chek Fastclix Lancet #100 ea 01/18/21 07/21/22 Rx Drum) betamethasone valerate 0.1 % 1 applic topical BID PRN rash #45 11/08/21 09/26/22 Rx topical cream grams blood sugar diagnostic (Accu-Chek #100 ea 11/22/21 07/21/22 Rx Guide test strips) carboxymethylcellulose 0.5 1 drp EACH EYE DAILY 02/18/22 09/26/22 History %-glycerin 0.9 % eye drops (Refresh Relieva) topiramate 50 mg tablet 50 mg PO BID #180 tabs 05/02/22 09/26/22 Rx celecoxib 200 mg capsule 200 mg PO DAILY #90 caps 05/16/22 09/26/22 Rx lisinopril 40 mg tablet 40 mg PO DAILY #90 tabs 05/31/22 09/26/22 Rx omeprazole 20 mg capsule,delayed 20 mg PO BID #180 caps 06/24/22 09/26/22 Rx release oxybutynin chloride 10 mg 10 mg PO DAILY #90 tabs 06/24/22 09/26/22 Rx tablet,extended release 24 hr metformin 1,000 mg tablet 1,000 mg PO BID #180 tabs 06/27/22 09/26/22 Rx simvastatin 20 mg tablet 20 mg PO DAILY #90 tabs 07/01/22 09/26/22 Rx cyclobenzaprine 10 mg tablet 10 mg PO QHS PRN muscle spasm #20 07/20/22 09/26/22 Rx tabs docusate sodium 100 mg tablet 200 mg PO QHS #60 tabs 07/20/22 09/26/22 Rx fluoxetine 20 mg capsule 20 mg PO DAILY #90 caps 08/15/22 09/26/22 Rx hydrochlorothiazide 12.5 mg tablet 12.5 mg PO DAILY #90 tabs 08/27/22 09/26/22 Rx acetaminophen 500 mg capsule 500 mg PO Q6H PRN Pain 09/26/22 09/26/22 History Laboratory Tests 10/05/22 07:00 POC Capillary Glucose 98 mg/dl (65-105) Patient hx anesthesia problems: none Family hx anesthesia problems: none Results Review: All pre-operative results and documents have been reviewed as part of the pre-operative evaluation. [facility] Past Medical History Medical History Diabetes GERD (gastroesophageal reflux disease) Heart palpitations Hypertension Migraines Mild acid reflux Sleep apnea Family History Family History Father Family history of obesity Depression Family history of migraine headaches Hypertension Family history of atrial fibrillation Family history of coronary artery disease Family history of heart disease in male family member before age 55 Mother Family history of cataracts Father Family history of atrial fibrillation Family history of congestive heart failure Mother Patient's mother is Other Family history of cardiovascular disease Family history of chronic obstructive pulmonary disease Family history of malignant neoplasm Social History Social History (Rev
[2022-10-05] MEDS: ceFAZolin 2 GM/D5W 50 ML 2 GM/50 ML BAG IVPB (07:26)
[2022-10-05] MEDS: BUPIVACAINE/EPINEPHRINE 0.5% 30 ML VIAL 20 ML INFILTRATE (07:51)
--- NOTE | 2022-10-05 08:28 | P.OPB_ITS ---
Procedure Note - Brief Procedure Note - Brief Date of procedure: 10/05/22 spinalcord stimulator dysfunction Post-op diagnosis: Same Procedure performed: Removal of spinal cord stimulator leads and generator Surgeon: Jalyn Bauer MD Associate Professor Of Economics: Levi Anesthesia: GETA and local Description of procedure: Removal of right gluteal generator. Reopened both lumbar incisions to remove leads. All material sent for gross specimen Implants: None Estimated blood loss (mL): 5 Drains: No Packing: No Pathology: Yes Complications: None Condition: Stable Disposition: PACU
[2022-10-05 08:47] LABS: Glucose Point of Care 117 mg/dl (65-105)
--- NOTE | 2022-10-05 15:06 | W.PM.PROC2 ---
Procedure Note - Detailed Date of Procedure 10/05/22 Pre-op Diagnosis spinal cord stimulator dysfunction Post-op Diagnosis Same Procedure Performed Removal of spinal cord stimulator leads and generator Surgeon Jalyn Bauer MD Filling Machine Set Up Mechanic Levi Anesthesia General and Local Indications Ms. Fallon is a 67-year-old female who had a spinal cord stimulator placed in 2006 which was unfortunately never helpful for her back pain. She has not used it in many years. She recently presented to clinic to discuss her back and leg pain. In order to obtain imaging in the form of an MRI, her spinal cord stimulator would need to be removed. Therefore, she presented for surgery today to have it removed. Risks of surgery were discussed including pain, infection, bleeding, need for more extensive exposure like a laminectomy to remove the leads, epidural hematoma, and anesthetic risks were discussed. The patient provided written informed consent to proceed. Description of Procedure The patient arrived in the operating room where general anesthesia was induced. The patient was turned prone onto the operating table. All pressure points were padded. The previous incisions were marked. The surgical field was prepped and draped in usual sterile fashion. Time out was conducted, and local anesthetic was injected into all planned incisions. The right gluteal incision was opened with a 10-blade scalpel. The soft tissue was dissected to the generator which was exposed with the bovie. A belinda was used to remove the generator from the pocket. The leads were cut, and the generator was passed off. The bovie was used to score the interior surfaces of the generator pocket to promote adhesion of the tissue. Next, both lumbar incisions were re-opened with the scalpel. The bovie was used to expose the leads and anchors. The entire lead was then able to be removed from the spine with the tips intact. All material was removed from the wounds and was sent for gross pathology. Hemostasis was ensured with the bovie. All incisions were copiously irrigated. The dermis was closed with interrupted 2-0 and 3-0 vicryl. The skin was closed in a subcuticular fashion with 4-0 monocryl. The incisions were covered with skin glue. The patient was returned to the supine position, extubated, and transferred to PACU without incident. Billing codes: 44003, 14680 Estimated Blood Loss 5 Drains No Packing No Pathology Yes Complications None Condition Stable Disposition PACU [facility] Billing Surgery - Charge Forward: Surgery Billing
== END 2022-10-05 10:17 | disposition home or self-care (01) ==
PROVIDERS: PCP Physician Assistant; Visit Provider Neurological Surgery
PROC: (CPT 63661; principal; 2022-10-05 07:30)
DX: T85.192A Other mechanical complication of implanted electronic neurostimulator of spinal cord electrode (lead), initial encounter (principal); M47.816 Spondylosis without myelopathy or radiculopathy, lumbar region; M79.652 Pain in left thigh; M79.651 Pain in right thigh; G89.29 Other chronic pain; Y83.8 Other surgical procedures as the cause of abnormal reaction of the patient, or of later complication, without mention of misadventure at the time of the procedure; E11.9 Type 2 diabetes mellitus without complications; I10 Essential (primary) hypertension; K21.9 Gastro-esophageal reflux disease without esophagitis; G47.30 Sleep apnea, unspecified; Z87.891 Personal history of nicotine dependence; E66.9 Obesity, unspecified; Z68.32 Body mass index [BMI] 32.0-32.9, adult; Z79.82 Long term (current) use of aspirin; Z79.84 Long term (current) use of oral hypoglycemic drugs
CPT/HCPCS: 63661; 63688; 82948; 88300; J0330; J0690; J1100; J2405; J2704; J3010; J7120

== ENCOUNTER 2022-11-02 14:35 | Outpatient (CLI) | payer MEDICARE, MEDICAID, SELFPAY ==
--- NOTE | ~2022-11-02 | MR_ITS ---
MRI of the lumbar spine Clinical History: Spondylosis Technique: Axial T2-weighted images, and sagittal T1-weighted, T2-weighted, and T2 fat-sat images wer e acquired. Findings: There is no fracture of the lumbar spine. There is minimal grade 1 retrolisthesis of L2 ove r L3. No suspicious bone marrow signal abnormality seen. At L1-L2, there is advanced degenerative disc narrowing. There is minimal disc bulge and moderate to advanced facet arthropathy. No central canal stenosis or neural foraminal narrowing. At L2-L3, there is mild disc bulge with advanced facet arthropathy. There is mild central canal steno sis. There is mild left neural foraminal narrowing. At L3-L4, there is disc bulge and severe facet arthropathy, resulting in moderate central canal steno sis/thecal sac compression. There is mild to moderate bilateral neural foraminal narrowing. At L4-L5, there is disc bulge and moderate facet arthropathy. No gagandeep central canal stenosis. There is moderate to severe right neural foraminal narrowing, and mild left neural foraminal narrowing. At L5-S1, there is central disc bulge with advanced facet arthropathy. No central canal stenosis. The re is severe right neural foraminal narrowing, and moderate to advanced left neural foraminal narrowi ng. Paravertebral soft tissues are unremarkable. Impression: Moderate to advanced degenerative spondylosis, as detailed above, probably worst at L3-L4. Minimal grade 1 retrolisthesis of L2 over L3. Reviewed, dictated and finalized at [facility]. Impression: Moderate to advanced degenerative spondylosis, as detailed above, probably wors t at L3-L4. Minimal grade 1 retrolisthesis of L2 over L3.
--- NOTE | ~2022-11-02 | XR_ITS ---
EXAMINATION: XR lumbar spine min 4V DATE: 11/02/2022 15:38 INDICATION: Spondylosis without myelopathy or radiculopathy TECHNIQUE: Anteroposterior and lateral in neutral, flexion and extension views of the lumbar spine, a nd cone-down lateral view of the lumbosacral junction were obtained. COMPARISON: 11/29/2015 and MRI from today FINDINGS: Bone alignment is normal. There is no fracture. No hypermobility is identified with flexion or extension. The vertebral body heights are maintained. There is severe loss of intervertebral disc space height at L1-2. There is severe facet joint osteoarthritis of the lower lumbar spine. IMPRESSION: 1. Moderate lumbar spondylosis without acute findings. Reviewed, dictated and finalized at location L.
--- NOTE | ~2022-11-02 | XR_ITS ---
AP view of the pelvis and AP and lateral views of the bilateral hips Clinical history: Pain Findings: No acute fracture or dislocation is seen. Osseous alignment is anatomic. Bilateral hip and SI joint spaces are preserved. Soft tissues are unremarkable. Impression: No significant abnormality is seen. Reviewed, dictated and finalized at location . Impression: No significant abnormality is seen.
== END 2022-11-02 14:36 | disposition home or self-care (01) ==
PROVIDERS: PCP Physician Assistant; Visit Provider Neurological Surgery
DX: M47.816 Spondylosis without myelopathy or radiculopathy, lumbar region (principal)
CPT/HCPCS: 72110; 72148; 73521

== ENCOUNTER 2023-03-15 08:30 | Outpatient (CLI) | payer MEDICARE, MEDICAID, SELFPAY ==
--- NOTE | ~2023-03-15 | XR_ITS ---
Right Shoulder Technique: AP and scapular Y views were obtained. Clinical History: Pain Findings: No fracture or dislocation is seen. Osseous alignment is anatomic. The glenohumeral and acr omioclavicular joint spaces are preserved. Soft tissues are unremarkable. Impression: Unremarkable right shoulder radiographs. Reviewed, dictated and finalized at [facility]. RINTENDENT PIER Impression: Unremarkable right shoulder radiographs.
--- NOTE | ~2023-03-15 | XR_ITS ---
XR cervical spine 4-5V DATE: 03/15/2023 09:18 INDICATION: Right arm pain TECHNIQUE: AP, open-mouth, lateral, swimmer views COMPARISON: None FINDINGS: C1 and C2 are normally aligned and the odontoid process is intact. No fracture or dislocation or locked facet. No prevertebral soft tissue swelling. There is minimal anterolisthesis at C4-5. Cervical interspaces are well preserved. Left dual-lead pacemaker device. IMPRESSION: Minimal anterolisthesis at C4-5 Reviewed, dictated and finalized at location B. [employer]
[2023-03-15 09:42] LABS: Creatinine Urine 99.7 mg/dL
[2023-03-15 09:43] LABS: Basophils Percent Auto 0.6 % (0.2-1.2); Eosinophils Absolute Auto 0.3 K/mm3 (0-0.3); Eosinophils Percent Auto 3.9 % (0-4.4); Hematocrit 40.8 % (37.0-47.0); Hemoglobin 12.3 g/dL (12.0-15.0); Immature Granulocyte Absolute 0.01 K/mm3 (0.00-0.031); Immature Granulocyte Percent A 0.2 % (0-0.5); Lymphocytes Absolute Auto 2.13 K/mm3 (0.9-3.2); Lymphocytes Percent Auto 33.1 % (18.3-44.2); Mean Corpuscular HGB Conc 30.1 g/dl (32-36); Mean Corpuscular Hemoglobin 24.9 pg (26-34); Mean Corpuscular Volume 82.6 fl (80-100); Mean Platelet Volume 10.1 fl (7.4-10.4); Monocytes Absolute Auto 0.7 K/mm3 (0.1-0.6); Monocytes Percent Auto 10.1 % (2.6-8.5); Neutrophils Absolute Auto 3.4 K/mm3 (1.3-6.7); Neutrophils Percent Auto 52.1 % (45.5-73.1); Platelet Count Result 302 k/mm3 (150-375); Red Blood Count 4.94 M/mm3 (4.2-5.4); Red Cell Distribution Width 16.7 % (11.5-14.5); White Blood Count 6.4 K/mm3 (4.5-10.0)
[2023-03-15 10:01] LABS: Alanine Aminotransferase 19 U/L (6-35); Albumin Level 4.2 g/dL (3.5-5.1); Alkaline Phosphatase 81 U/L (38-126); Anion Gap 9 mmol/L (8-16); Aspartate Amino Transferase 22 U/L (14-36); Bilirubin,Total 0.4 mg/dL (0.2-1.3); Blood Urea Nitrogen 14 mg/dL (7-17); Calcium 9.6 mg/dL (8.4-10.2); Carbon Dioxide 29 mmol/L (22-30); Chloride 102 mmol/L (98-107); Cholesterol 181 mg/dL (0-200); Estimated Glomerular Filt Rate > 60; Glucose 89 mg/dL (65-110); HDL Direct 57 mg/dL; Potassium 3.7 mmol/L (3.4-5.0); Sodium 140 mmol/L (137-145); Triglycerides 137 mg/dL (<150)
[2023-03-15 10:11] LABS: MALB Creatinine Ratio < 6.0 mg/g (0-30); Microalbumin Urine Random < 6.0 mg/L (0-16.7)
[2023-03-15 10:14] LABS: LDL Cholesterol Direct 93 mg/dL
[2023-03-15 10:32] LABS: Thyroid Stimulating Hormone 0.742 uIU/mL (0.465-4.680)
[2023-03-15 11:00] LABS: Hemoglobin A1C 5.9 % (<5.7)
[2023-03-15 11:07] LABS: Folic Acid 6.2 ng/mL (2.76->20)
== END 2023-03-15 08:31 | disposition home or self-care (01) ==
PROVIDERS: PCP Physician Assistant; Visit Provider Physician Assistant
DX: E11.9 Type 2 diabetes mellitus without complications (principal); R53.83 Other fatigue; M79.601 Pain in right arm
CPT/HCPCS: 36415; 72050; 73030; 80053; 80061; 82043; 82607; 82746; 83036; 84443; 85025

== ENCOUNTER 2023-05-24 02:06 | Day surgery (SDC) | payer MEDICARE, MEDICAID, SELFPAY ==
[2023-05-17 13:43] VITALS: BMI 34.0
--- NOTE | 2023-05-17 13:54 | PC.NURSE ---
Pt stated understanding of when to stop Eliquis, last dose being 05/21/23
[2023-05-24 08:33] VITALS: BP 179/81; PULSE 65; RESP 20; TEMP 35.7; O2SAT 100; BMI 32.7
[2023-05-24 08:44] LABS: Glucose Point of Care 96 mg/dl (65-105)
[2023-05-24] MEDS: LACTATED RINGERS 1,000 ML 150 ML IV CONT (08:45)
[2023-05-24 08:47] VITALS: BP 143/79
--- NOTE | 2023-05-24 08:48 | WPDANESEPPF ---
Anes - Initial Pre Proc Eval Procedure: Operation Date: 05/24/23 10:00 Proposed Procedures p Screening Colonoscopy - Juan Mendoza MD Date/Time: 05/24/23 08:48 Surgeon: Juan Mendoza MD Pre Op Diagnosis: hx of colon polyps Patient Data Age: 67 Gender: F Height: 1.57 m Weight: 81.1 kg Last Vital Signs Temp 96.3 F L 05/24/23 08:33 Pulse 65 05/24/23 08:33 Resp 20 05/24/23 08:33 BP 143/79 H 05/24/23 08:47 Pulse Ox 100 05/24/23 08:33 O2 Del Method Room Air 05/24/23 08:33 Allergies Allergy/AdvReac Type Severity Reaction Status Date / Time prednisone Allergy Unknown Swelling Verified 05/24/23 08:29 Home Medications Medication Instructions Recorded Confirmed Type cholecalciferol (vitamin D3) 125 125 mcg PO DAILY 08/24/20 05/17/23 History mcg (5,000 unit) capsule fluticasone propionate 50 1 spray intranasal DAILY PRN 08/24/20 05/17/23 History mcg/actuation nasal Allergy Symptoms spray,suspension loratadine 10 mg tablet 10 mg PO DAILY PRN allergy symptoms 08/24/20 05/17/23 History mecobalamin (vitamin B12) 1,000 1,000 mcg PO EVERY OTHER DAY 08/24/20 05/17/23 History mcg chewable tablet lancets (Accu-Chek Fastclix Lancet #100 ea 01/18/21 03/29/23 Rx Drum) blood sugar diagnostic (Accu-Chek #100 ea 11/22/21 03/29/23 Rx Guide test strips) metformin 1,000 mg tablet 1,000 mg PO BID #180 tabs 06/27/22 05/17/23 Rx oxybutynin chloride 10 mg 10 mg PO DAILY #90 tabs 12/11/22 05/17/23 Rx tablet,extended release 24 hr simvastatin 20 mg tablet 20 mg PO DAILY #90 tabs 01/10/23 05/17/23 Rx fluoxetine 20 mg capsule 20 mg PO DAILY #90 caps 02/03/23 05/17/23 Rx apixaban 5 mg tablet (Eliquis) 5 mg PO BID 03/13/23 05/17/23 History cyclobenzaprine 10 mg tablet 10 mg PO QHS PRN muscle spasm #30 03/13/23 05/17/23 Rx tabs metoprolol tartrate 50 mg tablet 50 mg PO BID 03/13/23 05/17/23 History omeprazole 20 mg capsule,delayed See Rx Instructions .Route 03/25/23 05/17/23 Rx release .COMPLEX #180 caps clobetasol 0.05 % topical cream 1 applic topical BID PRN Itching 03/29/23 05/17/23 History hydrochlorothiazide 12.5 mg tablet 12.5 mg PO DAILY 03/29/23 05/17/23 History topiramate 50 mg tablet 50 mg PO BID #180 tabs 04/20/23 05/17/23 Rx sumatriptan succinate 50 mg tablet See Rx Instructions PO .COMPLEX #9 05/09/23 05/17/23 Rx tabs docusate sodium 50 mg capsule 50 mg PO DAILY PRN Constipation 05/17/23 05/17/23 History Laboratory Tests 05/24/23 08:41 POC Capillary Glucose 96 mg/dl (65-105) Patient hx anesthesia problems: none and post op nausea/vomiting Family hx anesthesia problems: none Results Review: All pre-operative results and documents have been reviewed as part of the pre-operative evaluation. [facility] Past Medical History Medical History (Updated 03/29/23 @ 10:29 by Heber Zurita MD) Diabetes GERD (gastroesophageal reflux disease) Heart palpitations History of pacemaker Hypertension Migraines Mild acid reflux Sleep apnea Surgical History Surgical History (Updated 03/29/23 @ 10:21 by Alannah Macedo CMA) History of ankle surgery History of back surgery History of bilateral breast reduction surgery History of carpal tunnel release of both wrists History of tubal ligation Family History Family History Father Family history of obesity Depression Family history of migraine headaches Hypertension Family history of atrial fibrillation Family history of coronary artery disease Family history of heart disease in male family member before age 55 Mother Family history of cataracts Father Family history of atrial fibrillation Family history of congestive heart failure Mother Patient's mother is Other Family history of cardiovascular disease Family history of chronic obstructive pulmonary disease Family history of malign
--- NOTE | 2023-05-24 09:48 | PM.HPGS ---
History of Present Illness History of Present Illness Consent: Risks, benefits, and alternatives have been discussed and questions answered. Patient agrees to proceed with procedure. Chief complaint: hx of colon polyps Narrative: Sarah Fallon is a 67 year old female here for screening colonoscopy, last one 2012 Review of Systems Review of Systems: All systems reviewed & are unremarkable except as noted in HPI and below PMFSH Past Medical History Medical History (Updated 05/24/23 @ 09:49 by Juan Mendoza MD) Colon cancer screening Diabetes GERD (gastroesophageal reflux disease) Heart palpitations History of pacemaker Hypertension Migraines Mild acid reflux Sleep apnea Surgical History Surgical History (Updated 03/29/23 @ 10:21 by Alannah Macedo CMA) History of ankle surgery History of back surgery History of bilateral breast reduction surgery History of carpal tunnel release of both wrists History of tubal ligation Family History Family History Father Family history of obesity Depression Family history of migraine headaches Hypertension Family history of atrial fibrillation Family history of coronary artery disease Family history of heart disease in male family member before age 55 Mother Family history of cataracts Father Family history of atrial fibrillation Family history of congestive heart failure Mother Patient's mother is Other Family history of cardiovascular disease Family history of chronic obstructive pulmonary disease Family history of malignant neoplasm Social History Social History (Updated 03/29/23 @ 10:22 by Alannah Macedo CMA) Social History: Within the last 12 months, Sarah has received assistance in getting her medications and food. She feels very confident in filling out medical forms. Smoking packs per day: 3 Smoking cigarettes per day: 60.0 Years smoked: 24 Smoking pack-years: 72.00 Smoking status: Former smoker Tobacco type: cigarettes Second hand tobacco smoke exposure: Yes Smoking end date: 02/13/11 Alcohol intake: current Alcohol use details: rarely Substance use type: does not use Do You Feel Safe in your Home?: Yes Lack of Transportation: YES Lack of Food: Never True Current Housing: I Have Housing Concerned About Future Housing: No Difficulty Paying Gas/Electric Bills: No Difficulty Paying for Meds: No Currently Unemployed: No Education: High School Diploma/GED Difficulty w/ Childcare or Family Care: No Living arrangements: with family Occupation/Education: retired Spiritual care concerns: No Meds Home Medications and Allergies Home Medications Medication Instructions Recorded Confirmed Type cholecalciferol (vitamin D3) 125 125 mcg PO DAILY 08/24/20 05/17/23 History mcg (5,000 unit) capsule fluticasone propionate 50 1 spray intranasal DAILY PRN 08/24/20 05/17/23 History mcg/actuation nasal Allergy Symptoms spray,suspension loratadine 10 mg tablet 10 mg PO DAILY PRN allergy symptoms 08/24/20 05/17/23 History mecobalamin (vitamin B12) 1,000 1,000 mcg PO EVERY OTHER DAY 08/24/20 05/17/23 History mcg chewable tablet lancets (Accu-Chek Fastclix Lancet #100 ea 01/18/21 03/29/23 Rx Drum) blood sugar diagnostic (Accu-Chek #100 ea 11/22/21 03/29/23 Rx Guide test strips) metformin 1,000 mg tablet 1,000 mg PO BID #180 tabs 06/27/22 05/17/23 Rx oxybutynin chloride 10 mg 10 mg PO DAILY #90 tabs 12/11/22 05/17/23 Rx tablet,extended release 24 hr simvastatin 20 mg tablet 20 mg PO DAILY #90 tabs 01/10/23 05/17/23 Rx fluoxetine 20 mg capsule 20 mg PO DAILY #90 caps 02/03/23 05/17/23 Rx apixaban 5 mg tablet (Eliquis) 5 mg PO BID 03/13/23 05/17/23 History cyclobenzaprine 10 mg tablet 10 mg PO QHS PRN muscle spasm #30 03/13/23 05/17/23 Rx tabs metoprolol tartrate 50 mg tablet
[2023-05-24 10:13] VITALS: BP 122/89; PULSE 64; RESP 18; O2SAT 100
[2023-05-24 10:23] VITALS: BP 151/69; PULSE 60; RESP 18; O2SAT 99
[2023-05-24 10:33] VITALS: BP 159/71; PULSE 60; RESP 20; O2SAT 98
--- NOTE | 2023-05-24 10:42 | SUR.PHASEII ---
PT NOTIFIED TO RESUME ELIQUIS TOMORROW 05/25/[address] LEI ORDERS. STATES UNDERSTANDING
== END 2023-05-24 10:44 | disposition home or self-care (01) ==
PROVIDERS: PCP Physician Assistant; Visit Provider Internal Medicine Gastroenterology
PROC: 0DJD8ZZ Inspection of Lower Intestinal Tract, Via Natural or Artificial Opening Endoscopic (ICD-10-PCS; CPT 45378; principal; 2023-05-24 10:00)
DX: Z12.11 Encounter for screening for malignant neoplasm of colon (principal); K63.5 Polyp of colon; E11.9 Type 2 diabetes mellitus without complications; I10 Essential (primary) hypertension; G47.30 Sleep apnea, unspecified; K21.9 Gastro-esophageal reflux disease without esophagitis; Z95.0 Presence of cardiac pacemaker; Z79.84 Long term (current) use of oral hypoglycemic drugs; Z79.01 Long term (current) use of anticoagulants; Z87.891 Personal history of nicotine dependence; E66.9 Obesity, unspecified; Z68.32 Body mass index [BMI] 32.0-32.9, adult
CPT/HCPCS: 45385; 82948; 88305; J2704; J7120

== ENCOUNTER 2023-11-01 09:37 | Outpatient (CLI) | payer MEDICARE, MEDICAID, SELFPAY ==
[2023-11-01 10:22] LABS: Alanine Aminotransferase 19 U/L (6-35); Albumin Level 4.5 g/dL (3.5-5.1); Alkaline Phosphatase 69 U/L (38-126); Anion Gap 12 mmol/L (4-12); Aspartate Amino Transferase 25 U/L (14-36); Bilirubin,Total 0.4 mg/dL (0.2-1.3); Blood Urea Nitrogen 12 mg/dL (7-17); Calcium 9.6 mg/dL (8.4-10.2); Carbon Dioxide 28 mmol/L (22-30); Chloride 97 mmol/L (98-107); Estimated Glomerular Filt Rate > 60; Glucose 92 mg/dL (65-110); Potassium 4.3 mmol/L (3.4-5.0); Sodium 137 mmol/L (137-145)
[2023-11-01 10:24] LABS: Hemoglobin A1C 5.8 % (<5.7)
[2023-11-01 10:48] LABS: Free T4 Free Thyroxine 0.87 ng/mL (0.78-2.19)
[2023-11-01 10:55] LABS: Thyroid Stimulating Hormone 0.437 uIU/mL (0.465-4.680)
== END 2023-11-01 09:38 | disposition home or self-care (01) ==
LOC: ANHLAB 09:41
PROVIDERS: PCP Internal Medicine; Visit Provider Internal Medicine
DX: E11.9 Type 2 diabetes mellitus without complications (principal); E05.90 Thyrotoxicosis, unspecified without thyrotoxic crisis or storm; I10 Essential (primary) hypertension
CPT/HCPCS: 36415; 80053; 83036; 84439; 84443

== ENCOUNTER 2024-02-02 10:11 | Outpatient (CLI) | payer MEDICARE, MEDICAID, SELFPAY ==
[2024-02-02 11:17] LABS: Thyroid Stimulating Hormone 0.848 uIU/mL (0.465-4.680)
[2024-02-02 12:07] LABS: Free T4 Free Thyroxine 0.71 ng/dL (0.78-2.19)
== END 2024-02-02 10:12 | disposition home or self-care (01) ==
LOC: ANHLAB 10:15
PROVIDERS: PCP Internal Medicine; Visit Provider Internal Medicine
DX: E05.90 Thyrotoxicosis, unspecified without thyrotoxic crisis or storm (principal)
CPT/HCPCS: 36415; 84439; 84443

== ENCOUNTER 2024-05-28 10:10 | Outpatient (CLI) | payer MEDICARE, MEDICAID, SELFPAY ==
[2024-05-28 10:53] LABS: Basophils Percent Auto 0.4 % (0.2-1.2); Eosinophils Absolute Auto 0.2 K/mm3 (0-0.3); Hematocrit 40.2 % (37.0-47.0); Hemoglobin 12.2 g/dL (12.0-15.0); Immature Granulocyte Absolute 0.01 K/mm3 (0.00-0.031); Immature Granulocyte Percent A 0.2 % (0-0.5); Lymphocytes Absolute Auto 1.49 K/mm3 (0.9-3.2); Lymphocytes Percent Auto 28.7 % (18.3-44.2); Mean Corpuscular HGB Conc 30.3 g/dl (32-36); Mean Corpuscular Hemoglobin 26.5 pg (26-34); Mean Corpuscular Volume 87.4 fl (80-100); Mean Platelet Volume 10.2 fl (7.4-10.4); Monocytes Absolute Auto 0.5 K/mm3 (0.1-0.6); Monocytes Percent Auto 10.2 % (2.6-8.5); Neutrophils Absolute Auto 2.9 K/mm3 (1.3-6.7); Neutrophils Percent Auto 56.5 % (45.5-73.1); Platelet Count Result 241 k/mm3 (150-375); Red Cell Distribution Width 15.4 % (11.5-14.5); White Blood Count 5.2 K/mm3 (4.5-10.0)
--- OUTSIDE RECORDS SUMMARY | 2024-05-28 11:06 | XMS_ITS | CONTINUITY OF CARE DOCUMENT ---
Author Name jaycee champion Address Unknown Organization [facility] Address [address] [place] [address] Phone [phone] Care Team Providers Care Family Consumer Scientist Name Role Phone jaycee champion Unavailable Unavailable
--- OUTSIDE RECORDS SUMMARY | 2024-05-28 11:06 | XMS_ITS | Encounter Summary ---
Author Organization [facility] Address [address] [place] [address] Care Team Providers Care Continuous Mining Machine Operator Name Role Phone GrantKathy khan Mayra RENDERER Primary Care Provider Pradeep Winn MD Unavailable [phone] Che CoreasP Primary Care Provider [phone] Stephen Conti PA-C Primary Care Provider [phone] Tanner Aparicio DO Primary Care Provider Encounter Details Date Type Department Care Team (Late st Contact Info) Description 05/31/2017 Hospital Orders Only [facility] at [address] [address] Pradeep Basurto MD [address] [id number] Social History Tobacco Use Types Packs/Day Years Used Date Smoking Tobacco: Former Cigarettes Q uit: 2016 Smokeless Tobacco: Never Alcohol Use Standard Drinks/Week Comments No 0 (1 standard drink = 0.6 oz pur e alcohol) Comments Unknown Sex and Gender Information Value Date Recorded Sex Assigned at Female 12/19/2017 1:40 PM BAG MACHINE SET UP OPERATOR Legal Sex Female 7:58 PM CDT Gender Identity Female 12/19/2017 1:40 PM BAG MACHINE SET UP OPERATOR Sexual Orientation Straight 12/19/2017 1: 40 PM BAG MACHINE SET UP OPERATOR Occupation Industry Job Start Date Job End Date Not on file Not on file Not on file Not on file documented as of this encounter Plan of Treatment Upcoming Encounters Date Type Department Care Team (Late st Contact Info) Description 05/31/2024 1:00 PM CDT [facility], [facility] [address] [place] [address] Vernon Torres MD [facility]. [facility] [address] [place] [address] 06/19/2024 9:30 AM CDT Office Visit [facility] [address] [place] [phone] Shena Spaulding, RENDERER-C [facility]. [facility] [address] [place], [place] [address] 07/01/2024 2:20 PM CDT [facility] [address] [place], [place] [address] Vernon Torres MD [facility]. [facility] [address] [place], [place] [address] Pradeep Basurto MD [facility]. [facility] [address] [place] [address] documented as of this encounter Visit Diagnoses Not on filedocumented in this encounter Care Teams Continuous Mining Machine Operator Relationship Specialty Start Date End Date Kathy Cramer NP PCP - General NURSE PRACTITIONER 03/16/17 01/07/20 Che Coreas FNP [facility]. [facility] [address] [place] [address] PCP - General Nurse Practitioner Family 01/08/20 08/24/20 Stephen Conti PA-C [address] [facility] [address] [place] [address] PCP - General PHYSICIAN REGIONAL PROPERTY MANAGER 08/25/20 02/24/24 Tanner Aparicio DO [address] [address] PCP - General 02/25/24 Pradeep Basurto MD [facility]. [facility] [address] [place] [address] [facility] CARDIOVASCULAR DISEASE 03/23/17 documented as of this encounter
[2024-05-28 11:07] LABS: Hemoglobin A1C 6.1 % (<5.7)
--- OUTSIDE RECORDS SUMMARY | 2024-05-28 11:07 | XMS_ITS | Clinical Summary ---
Author Organization [facility] Address [facility] [place] [address] Care Team Providers Care Solar Pool Heating Installer Name Role Phone Pradeep Basurto MD Unavailable [phone] Tanner Aparicio DO Primary Care Provider [phone] Allergies Active Allergy Reactions Criticality Noted Date Comments Prednisone Other (see comment) 05/17/2017 flushing Medications cholecalciferol (VITAMIN D3) 5000 UNITS Tab Take 1 tablet (5,000 Units total) by mouth daily. 018 Active Additional Information Patient taking differently:5,000 Units Oral Daily,SKIP SUNDAYS, Reported on 11/30/2022 clobetasol 0.05 % cream Apply 0.05 % topically 2 (two) times daily. 018 Active SUMAtriptan 50 MG tabletIndications :Intractable chronic migraine without aura and with status migrainosus TAKE ONE TABLET BY MOUTH AT ONSET OF MIGRAINE. IF SYMPTOMS PERSIST, A SECOND DOSE MAY BE TAKEN IN 1 HOUR. 9 tablet 4 019 Active Accu-Chek FastClix Lancets MiscIndications:U ncontrolled type 2 diabetes mellitus with hyperglycemia ([facility]/HCC HHS/HCC) 1 Device by Does not apply route daily. 102 each 1 020 Active Glucose Blood (BLOOD GLUCOSE TEST STRIPS) StripIndications: Uncontrolled type 2 diabetes mellitus with hyperglycemia (CMS/HCC HHS/HCC) 1 strip by Other route daily. Strips to go with Accu-check Guide me meter 100 strip 1 Active vitamin B-12 500 MCG tablet Take 2 tablets (1,000 mcg total) by mouth daily. Active simvastatin 20 MG tabletIndications :Hyperlipidemia, unspecified hyperlipidemia type Take 1 tablet (20 mg total) by mouth nightly at bedtime. 90 tablet 3 Active metFORMIN 1000 MG tabletIndications :Uncontrolled type 2 diabetes mellitus with hyperglycemia (CMS/HCC HHS/HCC) Take 1 tablet (1,000 mg total) by mouth 2 (two) times daily. 180 tablet 3 Active loratadine 10 MG tablet Take 1 tablet (10 mg total) by mouth daily as needed for Allergies. Active fluticasone propionate (FLONASE) 50 MCG/ACT nasal sprayIndications: Acute non-recurrent sinusitis, unspecified location 1 spray by Each Nostril route daily. 16 g Active Additional Information Patient taking differently:1 spray Each NostrilPRN, Reported on 09/15/2021 CPAP MASKIndications:O bstructive sleep apnea of adult Use nightly with CPAP machine 1 Device Active CPAP SUPPLIESIndicatio ns:Obstructive sleep apnea of adult 1 Device by Apply to Face route nightly at bedtime. 1 Device Active OXYBUTYNIN XL 10 MG 24 hr tabletIndications :Urinary incontinence, unspecified type Take 1 tablet by mouth once daily 90 tablet Active FLUoxetine 20 MG capsuleIndication s:Current mild episode of major depressive disorder, unspecified whether recurrent Take 1 capsule (20 mg total) by mouth daily. 90 capsule 1 Active omeprazole 20 MG capsuleIndication s:Gastroesophagea l reflux disease without esophagitis Take 1 capsule (20 mg total) by mouth 2 (two) times daily. 180 capsule 1 Active TOPIRAMATE 50 MG TabIndications:Ot her migraine with status migrainosus, not intractable Take 1 tablet by mouth twice daily 180 tablet Active Docusate Sodium (STOOL SOFTENER OR) Take 3 tablets by mouth daily as needed. Active cyclobenzaprine (FLEXERIL) 10 MG tablet TAKE 1 TABLET BY MOUTH EVERY DAY AT BEDTIME NEEDED FOR MUSCLE SPASM Active hydroCHLOROthiazi de (MICROZIDE) 12.5 MG tablet TAKE 1 TABLET BY MOUTH IN THE MORNING 90 tablet 1 024 Active apixaban (ELIQUIS) 5 MG tablet Take 1 tablet by mouth twice daily 60 tablet 1 025 Active metoprolol tartrate (LOPRESSOR) 50 MG tablet Take 1 tablet by mouth twice daily 180 tablet 025 Active metoprolol tartrate (LOPRESSOR) 50 MG tablet Take 1 tablet by mouth twice daily 180 tablet 1 024 2024 Discontinued Active Problems Problem Noted Date Diagnosed Date Sinoatrial node dysfunction ([facility]) Overview (01/26/2023): MIRTA CLAROS implanted 01/26/24 for SSS. Status cardiac pacemaker 01/26/2023 Overview (01/26/2023): MIRTA CLAROS implanted 01/26/24 for SSS. Achilles tendinosis of right lower extremity BMI 38.0-38.9,adult 06/19/2019 Vitamin D deficiency 04/30/2019 Seasonal allergies 04/30/2019 Skin ulcer of left foot, cervantes ited to breakdown of skin ([facility]) 12/11/2018 Assessment & Plan (12/11/2018 10:50 AM CDT): Minimal erythema. Will try mucpirocin as do not think warrant oral abx at this time. However did tell her to keep close eye on if any worsening call right away and if no improvement in 1 week may need oral abx and screen for PAD Pain in both feet 10/09/2018 Localized edema 10/09/2018 Dry nares 12/05/2017 Sciatica 09/06/2016 Nerve pain 07/22/2016 Obstructive sleep apnea of adult 07/07/2016 Overview (12/22/2017): Transitioned From: Snoring Urinary incontinence 07/07/2016 Depression 07/01/2016 Diabetes mellitus type 2, uncontrolled 7 GERD (gastroesophageal reflux disease) 7 Insomnia 07/01/2016 Lumbar pain 07/01/2016 Migraine headache 07/01/2016 Osteopenia 07/01/2016 Atypical chest pain Bradycardia Palpitations Essential hypertension Hyperlipidemia Resolved Problems Problem Noted Date Diagnosed Date Resolved Date Papular rash 04/30/2019 01/10/2020 Strain of lumbar region, initial encounter 11/07/2018 01/10/2020 Assessment & Plan (11/07/2018 10:03 AM CDT): Low back strain. Advised her to only take meloxicma and no other NSAID as can damage kidneys to take too much. Can do tylenol OTC, heating bad. Will try muscle relaxant and advised may cause drowsiness so to not drive when taking. Also given some stretching exercises as well Cellulitis 12/05/2017 01/10/2020 Impetigo 03/20/2017 01/10/2020 Wears glasses 01/13/2017 10/25/2019 Encounters Date Type Department Care Team Description 04/03/2024 Travel 03/31/2024 2:00 PM FINANCIAL ACCOUNTING MANAGER Allied Health/Nurse Visit [facility] [address] Vernon Torres MD Scally, John P, MD Remote Device Check from Last 3 Months Immunizations Immunization Administration Dates Next Due Influenza Adult (Generic) 04/23/2019(Deferred: P atient Refused) Family History Medical History Relation Comments Aneurysm Father Depression Father Heart Attack Father Heart Disease Father Hear Valve repla cement Hypertension Father Open Heart Father Stent Cardiac Father Valve Disease Father CHF Other Coronary artery disease Other Diabetes Other Heart Disease Other Leukemia Other Pancreatic Cancer Other Peripheral Neuropathy Other Relation Status Comments Father Mother passed in MVA Other Social History Tobacco Use Types Packs/Day Years Used Date Smoking Tobacco: Former Cigarettes Q uit: 1990 Smokeless Tobacco: Never Tobacco Cessation:Counseling Given: Not Answered Alcohol Use Standard Drinks/Week Comments Yes 0 (1 standard drink = 0.6 oz pur e alcohol) occassionally PHQ-2 Answer Date Recorded PHQ-2 Score - If the patient scores above 3, please move on to questions 3-9 1 07/10/2020 Education Answer Date Recorded What is the highest level of school you have completed or the highest degree you have received? GED or equivalent Comments No Sex and Gender Information Value Date Recorded Sex Assigned at Female 12/19/2017 1:40 PM FINANCIAL ACCOUNTING MANAGER Legal Sex Female 7:58 PM CDT Gender Identity Female 12/19/2017 1:40 PM FINANCIAL ACCOUNTING MANAGER Sexual Orientation Straight 12/19/2017 1: 40 PM FINANCIAL ACCOUNTING MANAGER Occupation Industry Job Start Date Job End Date Not on file Not on file Not on file Not on file Last Filed Vital Signs Vital Sign Reading Time Taken Comments Blood Pressure 120/70 09/20/2023 10:06 AM CDT Pulse 62 09/20/2023 10:06 AM CDT Temperature 36.3 C (97.4 F) 01/25/2023 9:27 AM FINANCIAL ACCOUNTING MANAGER Respiratory Rate 15 01/25/2023 3:30 PM FINANCIAL ACCOUNTING MANAGER Oxygen Saturation 100% 01/25/2023 3:30 PM FINANCIAL ACCOUNTING MANAGER Inhaled Oxygen Concentration - - Weight 81.6 kg (180 lb) 09/20/2023 10:06 AM CDT Height 154.9 cm (5' 1 ) 09/20/2023 10:06 AM CDT Body Mass Index 34.01 09/20/2023 10:06 AM CDT Plan of Treatment Upcoming Encounters Date Type Department Care Team (Late st Contact Info) Description 05/31/2024 1:00 PM CDT Office Visit [address] [address] Vernon Torres MD [address] [address] 06/19/2024 9:30 AM CDT [facility] [address] [place] [address] Shena Spaulding NP-C [facility]. [address] [address] 07/01/2024 2:20 PM CDT Allied Health/Nurse Visit [facility], [address] [address] Vernon Torres MD [facility]. [facility] [address] [place], [place] [id number] Pradeep Basurto MD [facility]. [facility] [address] [place], [place] [address] Health Maintenance Due Date Last Done Comments Colorectal Cancer Screening Colonoscopy (10 Years) 1955 Kidney Health Evaluation 1955 Hepatitis C 1974 DTaP, Tdap and Td Vaccines (1 - Tdap) 09/19/1975 Pneumococcal Vaccine: 50+ Years (1 of 2 - PCV) 09/19/1975 Zoster Vaccines (1 of 2) 2006 Mammogram Screening 05/03/2020 05/03/2018, 2 Hemoglobin A1C 01/10/2021 07/10/2020, 10/15, 04/30/2019, Additional history exists Lipid Panel 07/10/2021 07/10/2020, 2 02/2019, 04/23/2019, Additional history exists Annual Medicare Wellness Visit 2021 Diabetes: Retinopathy Eye Exam 02/26/2022 02/27/2020, 01/15/2019 COVID-19 Vaccine ( season) 2023 PHQ-2 (Physician [place]) 02/14/2024 RSV Immunization or 60+ Years (1 - 1-dose 75+ series) 09/19/2031 Dexa Scan (General) Completed 05/03/2018 Meningococcal B Vaccine Aged Out No l onger eligible based on patient's age to complete this topic Meningococcal Vaccine Aged Out No mary sarah eligible based on patient's age to complete this topic RSV Immunizations Under 20 Months Aged Out No longer eligible based on patient's age to complete this topic Medical Devices Implanted Type Area Drum Dyeing Machine Operator Device Identifier Shelf Expiration Date Model / Serial / Lot Rv Lead Implant-01/25 Implanted:Qty : 1 on 01/25/2023 by Vernon Torres MD Lead Implant [employer] CARDIAC RHYTHM AND HEART FAILURE - DIV M 12/23/2024 [id number] / [id number] / Description:LBB Ra Lead Implant-01/25 Implanted:Qty : 1 on 01/25/2023 by Vernon Torres MD Lead Implant [employer] CARDIAC RHYTHM AND HEART FAILURE - DIV M 09/01/2024 [id number] / [id number] V / Description:Appendage Mdt Pacemaker- Implanted:Qty : 1 on 01/25/2023 by Vernon Torres MD Pacemaker Left: Chest Wall [employer] CARDIAC RHYTHM AND HEART FAILURE - DIV M 05/27/2024 [id number] / [id number] / Procedures Procedure Name Priority Date/Time Associated Diagnosis Comments LIPID PANEL Routine 07/10/2020 7:32 AM CDT Mixed hyperlipidemia HEMOGLOBIN, GLYCOSYLATED Routine 07/10/2020 Uncontrolled type 2 diabetes mellitus with hyperglycemia DIABETIC RETINOPATHY EXAM (NEGATIVE)(SCAN ORDER) Routine 02/27/2020 MG SCREENING ZULY DIGI 05/03/2018 8:55 AM CDT BONE DENSITY/DEXA 05/03/2018 8:4 9 AM CDT from Last 3 Months or Most Recently Relevant to Health Maintenance Results * LIPID PANEL (07/10/2020 7:32 AM CDT) CHOLESTEROL 163 <200.0 MG/DL 07/10/2020 2:33 PM CDT [facility] TRIGLYCERIDES 103 <150 MG/DL 07/10/2020 2:33 PM CDT [facility] HDL 58 >40.0 MG/DL 07/10/2020 2:33 PM CDT [facility] LDL (CALCULATED) 84 <100 MG/DL 07/11/19 2:33 PM CDT [facility] NON HDL CHOLESTEROL 105 <130 MG/DL 07/10 2:33 PM CDT [facility] CHOL/HDL RATIO 2.8 0.0 - 4.5 07/10/2020 2:33 PM CDT [facility] VLDL CALCULATION 21 5 - 55 MG/DL 07/10/2020 2:33 PM CDT [facility] LIPID INTERPRETATION 07/10/2020 2:33 PM CDT [facility] Comment: [facility] REPORT RECOMMENDATIONS: ADULT CHILD LOW RISK: CHOLESTEROL <200 <170 TRIGLYCERIDE <150 --- HDL >=60 --- LDL <100 <110 BORDERLINE: CHOLESTEROL 200-239 170-199 TRIGLYCERIDE 150-199 --- HDL 40-59 --- LDL 100-159 110-129 HIGH RISK: CHOLESTEROL >=240 >=200 TRIGLYCERIDE >=200 --- HDL <40 --- LDL >=160 >=130 07/10/2020 7:32 AM CDT Che Coreas [facility] Final Resu lt Performing Organization Address [facility] de Phone Number [facility] [address] [place] [address], [place] [phone] * HEMOGLOBIN, GLYCOSYLATED (07/10/2020) HGB A1C 5.7 % [id number] [facility] 07/10/2020 Che Coreas [facility] Final Resu lt Performing Organization Address [facility] de Phone Number [id number] [facility] [address] [place] [address], [place] [phone] * DIABETIC RETINOPATHY EXAM (NEGATIVE)(SCAN) (02/27/2020) us Documents Scanned SCANNING Final Result Performing Organization Address [facility] de Phone Number [facility] ONBASE * MG SCREENING ZULY DIGI (05/03/2018 8:55 AM CDT) Anatomical Region Laterality Modality Breast Bilateral Mammography 05/03/2018 8:55 AM CDT Narrative 05/03/2018 12:00 AM CDT [facility] ADMIT/SERVICE DATE: 05/03/18 ACCT: [id number] DISCHARGE DATE: : 1955 SEX: F ORD SITE: [facility] PT TYPE: REG CLI ORDERING MD: KATHY VIVEROS NP STUDY DATE REPORT # ORDER # EXT ORDER ID 05/03/18 [id number] PROC CODE: DSMTWB PROCEDURE DESCRIPTION: MG SCREEN DIG MALI W LATRICE BI EXAMINATION: MG SCREEN DIG MALI W LATRICE BI WITH TOMOSYNTHESIS AND COMPUTER-AIDED DETECTION (CAD) DATE: 05/03/2018 8:24 AM COMPARISON STUDIES: 07/25/2011, 09/22/2010, 11/19/2008. CLINICAL HISTORY: OTHER - MAMM AND BONE DENSITY . SCREENING, NO COMPLAINTS. HISTORY OF BILATERAL BREAST REDUCTION SURGERY 1999. FINDINGS: BILATERAL CC, MLO, 2-D AND 3-D ACQUISITIONS. FATTY REPLACED RESIDUAL BREAST PARENCHYMA. SIMILAR IN APPEARANCE AND DISTRIBUTION TO THE PREVIOUS EXAMS. NO EVIDENCE OF DOMINANT MASS, ARCHITECTURAL DISTORTION, SKIN THICKENING, NIPPLE RETRACTION OR SUSPICIOUS CLUSTERS OF MICROCALCIFICATIONS. BENIGN CALCIFICATIONS REDEMONSTRATED. . CONCLUSION: 1. BI-RADS CATEGORY 2 - BENIGN FINDINGS. ANNUAL SCREENING MAMMOGRAPHY RECOMMENDED 2. TISSUE TYPE: CATEGORY A - THE BREASTS ARE ALMOST ENTIRELY FATTY. MQSA BI-RADS CATEGORIES: CATEGORY 0 - NEEDS ADDITIONAL IMAGING EVALUATION. CATEGORY 1 - NEGATIVE. CATEGORY 2 - BENIGN FINDINGS. CATEGORY 3 - PROBABLY BENIGN FINDINGS, BUT SHORT INTERVAL FOLLOW-UP IS RECOMMENDED. CATEGORY 4 - SUSPICIOUS ABNORMALITY AND BIOPSY SHOULD BE CONSIDERED THOUGH THE LESION MAY WELL BE BENIGN. CATEGORY 5 - HIGHLY SUGGESTIVE OF MALIGNANCY AND APPROPRIATE ACTION SHOULD BE TAKEN. A) A NEGATIVE REPORT SHOULD NOT DELAY A BIOPSY IF A DOMINANT OR CLINICALLY SUSPICIOUS MASS IS PRESENT. B) ADENOSIS AND DENSE BREASTS MAY OBSCURE AN UNDERLYING NEOPLASM. C) STUDY INTERPRETED WITH COMPUTER AIDED DETECTION. VOICE RECOGNITION SOFTWARE UTILIZED. ELECTRONICALLY SIGNED BY SHARATH KIMBROUGH MD ON 05/03/2018 8:56 AM Procedure Note Ren Correa, - 05/03/2018 [facility] ADMIT/SERVICE DATE:05/03/18 ACCT: [id number] DISCHARGE DATE: : 1955 SEX: F ORD SITE: [facility] PT TYPE: REG CLI ORDERING MD:KATHY VIVEROS NP STUDY DATE REPORT # ORDER # EXT ORDER ID 05/03/18 [id number] PROC CODE: DSMTWB PROCEDURE DESCRIPTION: MG SCREEN DIG MALI W LATRICE BI EXAMINATION: MG SCREEN DIG MALI W LATRICE BI WITH TOMOSYNTHESIS ANDCOMPUTER-AIDED DETECTION (CAD) DATE: 05/03/2018 8:24 AM COMPARISON STUDIES: 07/25/2011, 09/22/2010, 11/19/2008. CLINICAL HISTORY: OTHER - MAMM AND BONE DENSITY . SCREENING, NOCOMPLAINTS. HISTORY OF BILATERAL BREAST REDUCTION SURGERY 1999. FINDINGS: BILATERAL CC, MLO, 2-D AND 3-D ACQUISITIONS. FATTY REPLACED RESIDUALBREAST PARENCHYMA. SIMILAR IN APPEARANCE AND DISTRIBUTION TO THE PREVIOUS EXAMS. NO EVIDENCE OF DOMINANTMASS, ARCHITECTURAL DISTORTION, SKIN THICKENING, NIPPLE RETRACTION OR SUSPICIOUS CLUSTERS OFMICROCALCIFICATIONS. BENIGN CALCIFICATIONS REDEMONSTRATED. . CONCLUSION: 1. BI-RADS CATEGORY 2 - BENIGN FINDINGS. ANNUAL SCREENING MAMMOGRAPHYRECOMMENDED 2. TISSUE TYPE: CATEGORY A - THE BREASTS ARE ALMOST ENTIRELY FATTY. MQSA BI-RADS CATEGORIES: CATEGORY 0 - NEEDS ADDITIONAL IMAGING EVALUATION. CATEGORY 1 - NEGATIVE. CATEGORY 2 - BENIGN FINDINGS. CATEGORY 3 - PROBABLY BENIGN FINDINGS, BUT SHORT INTERVAL FOLLOW-UP IS RECOMMENDED. CATEGORY 4 - SUSPICIOUS ABNORMALITY AND BIOPSY SHOULD BE CONSIDERED THOUGH THE LESION MAY WELL BE BENIGN. CATEGORY 5 - HIGHLY SUGGESTIVE OF MALIGNANCY AND APPROPRIATE ACTION SHOULD BE TAKEN. A) A NEGATIVE REPORT SHOULD NOT DELAY A BIOPSY IF A DOMINANT OR CLINICALLY SUSPICIOUS MASS IS PRESENT. B) ADENOSIS AND DENSE BREASTS MAY OBSCURE AN UNDERLYING NEOPLASM. C) STUDY INTERPRETED WITH COMPUTER AIDED DETECTION. VOICE RECOGNITION SOFTWARE UTILIZED. ELECTRONICALLY SIGNED BY SHARATH KIMBROUGH MD ON 05/03/2018 8:56 AM Kathy Viveros NP MAMMO Final Result * BONE DENSITY/DEXA (05/03/2018 8:49 AM CDT) Anatomical Region Laterality Modality Bone Bone Density 05/03/2018 8:49 AM CDT Narrative 05/03/2018 12:00 AM CDT [facility] ADMIT/SERVICE DATE: 05/03/18 ACCT: [id number] DISCHARGE DATE: : 1955 SEX: F ORD SITE: [facility] PT TYPE: REG CLI ORDERING MD: KATHY VIVEROS NP STUDY DATE REPORT # ORDER # EXT ORDER ID 05/03/18 [id number] PROC CODE: DEXASCAN PROCEDURE DESCRIPTION: XR DEXA SCAN EXAMINATION: XR DEXA SCAN EXAM DATE/TIME: 05/03/2018 8:36 AM COMPARISON STUDIES:NO PREVIOUS AVAILABLE. CLINICAL HISTORY: OTHER - MAMM AND BONE DENSITY . POSTMENOPAUSAL STATUS FINDINGS AND IMPRESSION: EXAMINATION PERFORMED ON A [employer] DISCOVERY SL .: LUMBAR SPINE L2-L4: 1. BMD: 1.210. 2. T SCORE: 1.2. 3. WHO CLASSIFICATION: ABOVE NORMAL YOUNG ADULT RANGE. 4. FRACTURE RISK: NEGLIGIBLE. LEFT FEMORAL NECK: 1. BMD: 0.810. 2. T SCORE: -0.3. 3. WHO CLASSIFICATION: NORMAL YOUNG ADULT RANGE. 4. FRACTURE RISK: VERY LOW. VOICE RECOGNITION SOFTWARE UTILIZED. ELECTRONICALLY SIGNED BY SHARATH KIMBROUGH MD ON 05/03/2018 8:50 AM Procedure Note Ren Correa MD - 05/03/2018 [facility] ADMIT/SERVICE DATE:05/03/18 ACCT: [id number] DISCHARGE DATE: : 1955 SEX: F ORD SITE: [facility] PT TYPE: REG CLI ORDERING MD:KATHY VIVEROS NP STUDY DATE REPORT # ORDER # EXT ORDER ID 05/03/18 [id number] PROC CODE: DEXASCAN PROCEDURE DESCRIPTION: XR DEXA SCAN EXAMINATION: XR DEXA SCAN EXAM DATE/TIME: 05/03/2018 8:36 AM COMPARISON STUDIES:NO PREVIOUS AVAILABLE. CLINICAL HISTORY: OTHER - MAMM AND BONE DENSITY . POSTMENOPAUSAL STATUS FINDINGS AND IMPRESSION: EXAMINATION PERFORMED ON A [employer] DISCOVERY SL .: LUMBAR SPINE L2-L4: 1. BMD: 1.210. 2. T SCORE: 1.2. 3. WHO CLASSIFICATION: ABOVE NORMAL YOUNG ADULT RANGE. 4. FRACTURE RISK: NEGLIGIBLE. LEFT FEMORAL NECK: 1. BMD: 0.810. 2. T SCORE: -0.3. 3. WHO CLASSIFICATION: NORMAL YOUNG ADULT RANGE. 4. FRACTURE RISK: VERY LOW. VOICE RECOGNITION SOFTWARE UTILIZED. ELECTRONICALLY SIGNED BY SHARATH KIMBROUGH MD ON 05/03/2018 8:50 AM Kathy Viveros NP DEXA Final Result from Last 3 Months or Most Recently Relevant to Health Maintenance Insurance MEDICAID MEDICARE MEDICARE MEDICAID Advance Directives * Full Code (Latest Code Status on File) Date Activated Date Inactivated Comments 01/25/2023 1:53 PM 01/25/2023 6:14 PM Care Teams Solar Pool Heating Installer Relationship Specialty Start Date End Date Tanner Aparicio DO [address] [place] [address] PCP - General 02/25/24 Pradeep Basurto MD [facility]. [facility] [address] [place] [address] [place] Mechanical Detailer CARDIOVASCULAR DISEASE 03/23/17
--- OUTSIDE RECORDS SUMMARY | 2024-05-28 11:07 | XMS_ITS | Encounter Summary ---
Author Organization [facility] Address [address] [place] [id number] Care Team Providers Care Permit Technician Name Role Phone Kathy Cramer NP Primary Care Provider Pradeep Winn MD Unavailable [phone] Che CoreasP Primary Care Provider [phone] Stephen Conti PA-C Primary Care Provider [phone] Tanner Aparicio DO Primary Care Provider [phone] Encounter Details Date Type Department Care Team (Late Contact Info) Description 03/29/2017 Abstract [facility] at [address] [id number] Giana Saavge MA Social History Tobacco Use Types Packs/Day Years Used Date Smoking Tobacco: Former Cigarettes Alcohol Use Standard Drinks/Week Comments Yes 0 (1 standard drink = 0.6 oz pur e alcohol) occasionally Comments Unknown Sex and Gender Information Value Date Recorded Sex Assigned at Female 12/19/2017 1:40 PM STAFF SONOGRAPHER Legal Sex Female 7:58 PM CDT Gender Identity Female 12/19/2017 1:40 PM STAFF SONOGRAPHER Sexual Orientation Straight 12/19/2017 1: 40 PM STAFF SONOGRAPHER Occupation Industry Job Start Date Job End Date Not on file Not on file Not on file Not on file documented as of this encounter Plan of Treatment Upcoming Encounters Date Type Department Care Team (Late st Contact Info) Description 05/31/2024 1:00 PM CDT Office Visit [facility] [address] [place] [address] Vernon Torres MD [facility]. [address] [place] [address] 06/19/2024 9:30 AM CDT Office Visit [facility] [address] [place] [address] Shena Spaulding, GOAT DRIVER-C [facility]. [facility] [address] [place], [place] [id number] 07/01/2024 2:20 PM CDT Allied Health/Nurse Visit [facility], [facility] [address] [place] [address] Vernon Torres MD [facility]. [facility] [address] [place], [place] [address] Pradeep Basurto MD [facility]. [facility] [address] [place], [place] [id number] documented as of this encounter Procedures Procedure Name Priority Date/Time Associated Diagnosis Comments FOLATE (OUTSIDE LAB) Routine 03/01/2017 CBC (OUTSIDE LAB) Routine 03/01/2017 VITAMIN B-12 Routine 03/01/2017 COMPREHENSIVE METABOLIC PANEL Routine 03/01/2017 LIPID PANEL Routine 03/01/2017 HEMOGLOBIN, GLYCOSYLATED Routine 03/01/2017 THYROID STIM HORMONE TSH Routine 03/01/2017 VITAMIN D, 25 OH Routine 03/01/2017 documented in this encounter Results * FOLATE (OUTSIDE LAB) (03/01/2017) FOLATE 11.05 7.0 - 31.4 03/01/2017 [facility] Abstract LAB-OUTSIDE/ABSTRACTED Final Result * VITAMIN D, 25 OH (03/01/2017) VITAMIN D 25 HYDROXY S/P/B 58 03/01/2017 [facility] Abstract LABORATORY Edited Resul t - Final * VITAMIN B-12 (03/01/2017) VITAMIN B12 S/P/B 422 213 - 816 03/01/2017 [facility] Abstract LABORATORY Final Result * THYROID STIM HORMONE, TSH (03/01/2017) TSH 0.71 03/01/2017 [facility] Abstract LABORATORY Edited Resul t - Final * LIPID PANEL (03/01/2017) CHOLESTEROL 176 HDL 54 TRIGLYCERIDES 150 LDL (CALCULATED) 92 03/01/2017 [facility] Abstract LABORATORY Final Result * HEMOGLOBIN, GLYCOSYLATED (03/01/2017) HGB A1C 5.8 03/01/2017 [facility] Abstract LABORATORY Final Result * COMPREHENSIVE METABOLIC PANEL (03/01/2017) SODIUM S/P/B 142 POTASSIUM S/P/B 5.1 CO2 28 CHLORIDE S/P/B 105 GLUCOSE 105 mg/dL CALCIUM S/P/B 9.9 BUN 14 CREATININE S/P/B 0.88 0.5 - 1.0 EGFR NON-AFR. AMER. >60 <=90 ALKALINE PHOSPHATASE S/P/B 84 ALT 25 AST 18 BILIRUBIN TOTAL S/P/B 0.3 ALBUMIN S/P/B 4.2 3.5 - 5.0 TOTAL PROTEIN S/P/B 6.9 03/01/2017 [facility] Abstract LABORATORY Final Result * CBC (OUTSIDE LAB) (03/01/2017) WBC 7.4 HGB 12.7 HCT 41.7 PLT 257 03/01/2017 us [facility] Abstract LAB-OUTSIDE/ABSTRACTED Edite d Result - Final documented in this encounter Visit Diagnoses Not on filedocumented in this encounter Care Teams Permit Technician Relationship Specialty Start Date End Date Kathy Cramer, PETER PCP - General NURSE PRACTITIONER 03/16/17 01/07/20 Che Coreas FNP [facility] [address] [place] [address] PCP - General Nurse Practitioner Family 01/08/20 08/24/20 Stephen Conti PA-C [address] [facility] [address] [facility] [address] [place] [address] PCP - General PHYSICIAN BATTERY INSTALLER 08/25/20 02/24/24 Tanner Aparicio DO [address] [facility] [address] [place] [address] PCP - General 02/25/24 Pradeep Basurto MD [facility] [address] [place] [address] [place] CARDIOVASCULAR DISEASE 03/23/17 documented as of this encounter
[2024-05-28 11:10] LABS: Alanine Aminotransferase 22 U/L (6-35); Albumin Level 4.4 g/dL (3.5-5.1); Alkaline Phosphatase 67 U/L (38-126); Anion Gap 9 mmol/L (4-12); Aspartate Amino Transferase 24 U/L (14-36); Bilirubin,Total 0.4 mg/dL (0.2-1.3); Blood Urea Nitrogen 11 mg/dL (7-17); Calcium 9.3 mg/dL (8.4-10.2); Carbon Dioxide 28 mmol/L (22-30); Chloride 103 mmol/L (98-107); Cholesterol 209 mg/dL (0-200); Estimated Glomerular Filt Rate > 60; Glucose 92 mg/dL (65-110); HDL Direct 65 mg/dL; Potassium 3.9 mmol/L (3.4-5.0); Sodium 140 mmol/L (137-145); Triglycerides 165 mg/dL (<150)
[2024-05-28 11:21] LABS: LDL Cholesterol Direct 95 mg/dL
[2024-05-28 11:36] LABS: Free T4 Free Thyroxine 0.69 ng/dL (0.78-2.19)
[2024-05-28 11:38] LABS: Thyroid Stimulating Hormone 0.873 uIU/mL (0.465-4.680)
== END 2024-05-28 10:11 | disposition home or self-care (01) ==
PROVIDERS: PCP Internal Medicine; Visit Provider Internal Medicine
DX: E78.5 Hyperlipidemia, unspecified (principal); I10 Essential (primary) hypertension; E11.9 Type 2 diabetes mellitus without complications; E05.90 Thyrotoxicosis, unspecified without thyrotoxic crisis or storm
CPT/HCPCS: 36415; 80053; 80061; 83036; 84439; 84443; 85025

== ENCOUNTER 2025-01-28 01:51 | Day surgery (SDC) | payer MEDICARE, MEDICAID, SELFPAY ==
[2025-01-08 10:15] VITALS: BMI 34.4
--- NOTE | 2025-01-20 13:21 | PC.NURSE ---
Spoke with patient regarding medication Eliquis. Patient verbalizes understanding that the last dose is to be taken on 01/25/25 and the Endoscopist will instruct them when to restart after the procedure.
[2025-01-28 08:12] VITALS: BP 159/84; PULSE 67; RESP 20; TEMP 36.1; O2SAT 100; BMI 34.7
[2025-01-28] MEDS: LACTATED RINGERS 1,000 ML 150 ML IV CONT (08:34)
--- NOTE | 2025-01-28 09:03 | WPDANESEPPF ---
Anes - Initial Pre Proc Eval Procedure: Operation Date: 01/28/25 09:15 Proposed Procedures p Esophagogastroduodenoscopy EGD - Juan Mendoza MD Date/Time: 01/28/25 09:03 Surgeon: Juan Mendoza MD Pre Op Diagnosis: Dysphagia, unspecified Patient Data Age: 69 Gender: F Height: 1.55 m Weight: 83.4 kg Last Vital Signs Temp 96.9 F L 01/28/25 08:12 Pulse 67 01/28/25 08:12 Resp 20 01/28/25 08:12 BP 159/84 H 01/28/25 08:12 Pulse Ox 100 01/28/25 08:12 O2 Del Method Room Air 01/28/25 08:12 Allergies Allergy/AdvReac Type Severity Reaction Status Date / Time prednisone Allergy Unknown Swelling Verified 01/28/25 08:10 Home Medications ?Medication ?Instructions ?Recorded ?Confirmed ?Type cholecalciferol (vitamin D3) 125 125 mcg PO DAILY 08/24/20 01/28/25 History mcg (5,000 unit) capsule fluticasone propionate 50 1 spray intranasal DAILY PRN 08/24/20 01/08/25 History mcg/actuation nasal Allergy Symptoms spray,suspension loratadine 10 mg tablet 10 mg PO DAILY PRN allergy symptoms 08/24/20 01/08/25 History mecobalamin (vitamin B12) 1,000 1,000 mcg PO EVERY OTHER DAY 08/24/20 01/28/25 History mcg chewable tablet lancets (Accu-Chek Fastclix Lancet #100 ea 01/18/21 01/08/25 Rx Drum) apixaban 5 mg tablet (Eliquis) 5 mg PO BID 03/13/23 01/28/25 History cyclobenzaprine 10 mg tablet 10 mg PO QHS PRN muscle spasm #30 03/13/23 01/08/25 Rx tabs metoprolol tartrate 50 mg tablet 50 mg PO BID 03/13/23 01/28/25 History clobetasol 0.05 % topical cream 1 applic topical BID PRN Itching 03/29/23 01/08/25 History hydrochlorothiazide 12.5 mg tablet 12.5 mg PO DAILY 03/29/23 01/28/25 History docusate sodium 50 mg capsule 50 mg PO DAILY PRN Constipation 05/17/23 01/08/25 History blood sugar diagnostic (Accu-Chek #100 ea 02/15/24 01/08/25 Rx Guide test strips) metformin 1,000 mg tablet See Rx Instructions .Route 02/26/24 01/28/25 Rx .COMPLEX #180 tabs simvastatin 20 mg tablet 20 mg PO DAILY #90 tabs 03/26/24 01/28/25 Rx topiramate 50 mg tablet 50 mg PO .COMPLEX #270 tabs 05/31/24 01/08/25 Rx fluoxetine 20 mg capsule 20 mg PO DAILY #90 caps 10/18/24 01/28/25 Rx omeprazole 20 mg capsule,delayed See Rx Instructions .Route 11/26/24 01/28/25 Rx release .COMPLEX #180 caps oxybutynin chloride 10 mg 10 mg PO DAILY #90 tabs 11/26/24 01/28/25 Rx tablet,extended release 24 hr sumatriptan succinate 50 mg tablet See Rx Instructions PO .COMPLEX 01/08/25 01/08/25 History PRN migraine headache Laboratory Tests 01/28/25 08:32 POC Capillary Glucose 104 mg/dl (65-105) Patient hx anesthesia problems: none Family hx anesthesia problems: none Results Review: All pre-operative results and documents have been reviewed as part of the pre-operative evaluation. [facility] Past Medical History Medical History Yeast infection of the skin Visit for screening mammogram Type 2 diabetes mellitus with other specified complication Snoring Right elbow pain Rash and nonspecific skin eruption Other hyperlipidemia Other chronic pain Obstructive sleep apnea (adult) (pediatric) Morbid (severe) obesity due to excess calories (06/10/15) Migraine syndrome Lumbar spinal stenosis Hyperlipidemia, unspecified Essential (primary) hypertension Bilateral acute otitis media Back pain of lumbar region with sciatica Abrasion of right forearm, subsequent encounter Abdominal pain, acute, epigastric Colon cancer screening History of pacemaker Mild acid reflux Migraines Heart palpitations Sleep apnea Hypertension GERD (gastroesophageal reflux disease) Diabetes Surgical History Surgical History History of tubal ligation History of bilateral breast reduction surgery History of ankle surgery History of carpal tunnel release of both wrists History of back surgery Family History Family History Father Family history of obesity Depression Family history of migraine headaches Hypertension Family history of atrial fibrillation Family history of coronary artery disease Family history of heart disease in male family member before age 55 Family history of congestive heart failure Acute myocardial infarction Mother Family history of cataracts Patient's mother is , Onset Age: 61 MVC Sibling Cancer Acute myocardial infarction Neuropathy Heart disease Sibling Acute myocardial infarction Other Family history of cardiovascular disease Family history of chronic obstructive pulmonary disease Family history of malignant neoplasm Social History Social History Smoking packs per day: 3 Smoking cigarettes per day: 60.0 Years smoked: 24 Smoking pack-years: 72.00 Smoking status: Former smoker Tobacco type: cigarettes Second hand tobacco smoke exposure: Yes Smoking end date: 02/13/11 Alcohol intake: current Alcohol use details: rarely Substance use: never Substance use type: does not use Lack of Transportation: YES Lack of Food: Never True Current Housing: I Have Housing Concerned About Future Housing: No Difficulty Paying Gas/Electric Bills: No Difficulty Paying for Meds: No Currently Unemployed: No Education: High School Diploma/GED Difficulty w/ Childcare or Family Care: No Living arrangements: with family 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 ) Neurological: alert and oriented Last oral intake: >/= 8 hours ASA classification: III Emergent: no Anesthetic plan: proceed Anesthesia type and monitoring: general GIVS and standard monitoring Results Review: All pre-operative results and documents have been reviewed as part of the pre-operative evaluation. Afib w pacemaker in place, not pacer dep, [place] on CPAP, DM BMI 34, ex smoker (heavy in the past), none currently. Now w dysphagia. Informed Consent: The patient's anesthetic plan and its attendant risks and benefits were discussed with the patient/family/POA. Questions were solicited and answers provided to the satisfaction of the patient/family/POA.
--- NOTE | 2025-01-28 09:09 | PM.HPGS ---
History of Present Illness History of Present Illness Consent: Risks, benefits, and alternatives have been discussed and questions answered. Patient agrees to proceed with procedure. Chief complaint: Dysphagia, unspecified Narrative: Sarah Fallon is a 69 year old female here for another egd because of dysphagia, egd 2022 normal with empiric dilation using 50 Fr Anderson. Review of Systems Review of Systems: All systems reviewed & are unremarkable except as noted in HPI and below PMFSH Past Medical History Medical History Yeast infection of the skin Visit for screening mammogram Type 2 diabetes mellitus with other specified complication Snoring Right elbow pain Rash and nonspecific skin eruption Other hyperlipidemia Other chronic pain Obstructive sleep apnea (adult) (pediatric) Morbid (severe) obesity due to excess calories (06/10/15) Migraine syndrome Lumbar spinal stenosis Hyperlipidemia, unspecified Essential (primary) hypertension Bilateral acute otitis media Back pain of lumbar region with sciatica Abrasion of right forearm, subsequent encounter Abdominal pain, acute, epigastric Colon cancer screening History of pacemaker Mild acid reflux Migraines Heart palpitations Sleep apnea Hypertension GERD (gastroesophageal reflux disease) Diabetes Surgical History Surgical History History of tubal ligation History of bilateral breast reduction surgery History of ankle surgery History of carpal tunnel release of both wrists History of back surgery Family History Family History Father Family history of obesity Depression Family history of migraine headaches Hypertension Family history of atrial fibrillation Family history of coronary artery disease Family history of heart disease in male family member before age 55 Family history of congestive heart failure Acute myocardial infarction Mother Family history of cataracts Patient's mother is , Onset Age: 61 MVC Sibling Cancer Acute myocardial infarction Neuropathy Heart disease Sibling Acute myocardial infarction Other Family history of cardiovascular disease Family history of chronic obstructive pulmonary disease Family history of malignant neoplasm Social History Social History Smoking packs per day: 3 Smoking cigarettes per day: 60.0 Years smoked: 24 Smoking pack-years: 72.00 Smoking status: Former smoker Tobacco type: cigarettes Second hand tobacco smoke exposure: Yes Smoking end date: 02/13/11 Alcohol intake: current Alcohol use details: rarely Substance use: never Substance use type: does not use Lack of Transportation: YES Lack of Food: Never True Current Housing: I Have Housing Concerned About Future Housing: No Difficulty Paying Gas/Electric Bills: No Difficulty Paying for Meds: No Currently Unemployed: No Education: High School Diploma/GED Difficulty w/ Childcare or Family Care: No Living arrangements: with family 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 Gender identity (if verbalized by the patient): Female Spiritual care concerns: No Meds Home Medications and Allergies Home Medications ?Medication ?Instructions ?Recorded ?Confirmed ?Type cholecalciferol (vitamin D3) 125 125 mcg PO DAILY 08/24/20 01/28/25 History mcg (5,000 unit) capsule fluticasone propionate 50 1 spray intranasal DAILY PRN 08/24/20 01/08/25 History mcg/actuation nasal Allergy Symptoms spray,suspension loratadine 10 mg tablet 10 mg PO DAILY PRN allergy symptoms 08/24/20 01/08/25 History mecobalamin (vitamin B12) 1,000 1,000 mcg PO EVERY OTHER DAY 08/24/20 01/28/25 History mcg chewable tablet lancets (Accu-Chek Fastclix Lancet #100 ea 01/18/21 01/08/25 Rx Drum) apixaban 5 mg tablet (Eliquis) 5 mg PO BID 03/13/23 01/28/25 History cyclobenzaprine 10 mg tablet 10 mg PO QHS PRN muscle spasm #30 03/13/23 01/08/25 Rx tabs metoprolol tartrate 50 mg tablet 50 mg PO BID 03/13/23 01/28/25 History clobetasol 0.05 % topical cream 1 applic topical BID PRN Itching 03/29/23 01/08/25 History hydrochlorothiazide 12.5 mg tablet 12.5 mg PO DAILY 03/29/23 01/28/25 History docusate sodium 50 mg capsule 50 mg PO DAILY PRN Constipation 05/17/23 01/08/25 History blood sugar diagnostic (Accu-Chek #100 ea 02/15/24 01/08/25 Rx Guide test strips) metformin 1,000 mg tablet See Rx Instructions .Route 02/26/24 01/28/25 Rx .COMPLEX #180 tabs simvastatin 20 mg tablet 20 mg PO DAILY #90 tabs 03/26/24 01/28/25 Rx topiramate 50 mg tablet 50 mg PO .COMPLEX #270 tabs 05/31/24 01/08/25 Rx fluoxetine 20 mg capsule 20 mg PO DAILY #90 caps 10/18/24 01/28/25 Rx omeprazole 20 mg capsule,delayed See Rx Instructions .Route 11/26/24 01/28/25 Rx release .COMPLEX #180 caps oxybutynin chloride 10 mg 10 mg PO DAILY #90 tabs 11/26/24 01/28/25 Rx tablet,extended release 24 hr sumatriptan succinate 50 mg tablet See Rx Instructions PO .COMPLEX 01/08/25 01/08/25 History PRN migraine headache Allergies Allergy/AdvReac Type Severity Reaction Status Date / Time prednisone Allergy Unknown Swelling Verified 01/28/25 08:10 Vital Signs Vital Signs - 24 hr 01/28/25 08:12 Temperature 96.9 F L Pulse Rate 67 Respiratory Rate 20 Blood Pressure 159/84 H Pulse Oximetry 100 Oxygen Delivery Room Air Exam Const: General: comfortable and no acute distress HENMT: Face/Nose/Sinus: Normal nares present Eyes: General: appearance normal, both eyes and all related structures Neck: Neck: no JVD Resp: Auscultation: clear to auscultation bilaterally Cardio: Rate: regular rate Rhythm: regular rhythm GI: Inspection: non-distended GI Palp: Yes Soft to palpation Skin: General skin exam: normal color Psych: Mental Status: mental status grossly normal Assessment and Plan Assessment and plan (1) Dysphagia: Code(s): R13.10 - Dysphagia, unspecified Status: Acute Assessment and Plan: egd
--- NOTE | 2025-01-28 09:22 | S_PTH ---
PATIENT: Sarah Fallon LOC: [facility]#:[id number] AGE/SX: 69/F ROOM: RE01/28/[address]: Juan Mendoza MD : 1955 BED: DIS: 01/28/2025 SPEC #: [id number] RECD: 01/28/25 09:56 STATUS: CRISTIANO REYareli #: [id number] JARED: 01/28/25 09:[address]: Juan Mendoza DEPT: [facility] Surgical RECD BY: Be Gallagher ENTERED: 01/28/25 09:56 SP TYPE: Surgical OTHR DR: Tere Marks, ROSEMARY Tissues: A - Esophageal Biopsy B - Gastric Biopsy Procedures: Hematoxylin and Eosin Stain Gross and Microscopic Level 4
[2025-01-28 09:25] VITALS: BP 135/71; PULSE 61; RESP 15; O2SAT 98
[2025-01-28 09:35] VITALS: BP 133/67; PULSE 60; RESP 19; O2SAT 100
[2025-01-28 09:45] VITALS: BP 156/86; PULSE 60; RESP 17; O2SAT 100
== END 2025-01-28 09:58 | disposition home or self-care (01) ==
PROVIDERS: PCP Nurse Practitioner; Referring Provider Nurse Practitioner; Visit Provider Internal Medicine Gastroenterology
PROC: 0DJ08ZZ Inspection of Upper Intestinal Tract, Via Natural or Artificial Opening Endoscopic (ICD-10-PCS; CPT 43239; principal; 2025-01-28 09:15)
DX: K31.89 Other diseases of stomach and duodenum (principal); K31.7 Polyp of stomach and duodenum; K21.9 Gastro-esophageal reflux disease without esophagitis; E11.69 Type 2 diabetes mellitus with other specified complication; E78.49 Other hyperlipidemia; I10 Essential (primary) hypertension; R00.2 Palpitations; G47.33 Obstructive sleep apnea (adult) (pediatric); G89.29 Other chronic pain; G43.909 Migraine, unspecified, not intractable, without status migrainosus; M48.061 Spinal stenosis, lumbar region without neurogenic claudication; E66.9 Obesity, unspecified; Z68.34 Body mass index [BMI] 34.0-34.9, adult; Z79.01 Long term (current) use of anticoagulants; Z79.84 Long term (current) use of oral hypoglycemic drugs; Z99.89 Dependence on other enabling machines and devices; Z98.890 Other specified postprocedural states; Z95.0 Presence of cardiac pacemaker; Z98.51 Tubal ligation status; Z98.1 Arthrodesis status; Z87.891 Personal history of nicotine dependence; Z80.9 Family history of malignant neoplasm, unspecified; Z82.49 Family history of ischemic heart disease and other diseases of the circulatory system
CPT/HCPCS: 43239; 43450; 82948; 88305; J2003; J2704; J7120